=== PATIENT | male | born 2005 | race Caucasian/White ===

== ENCOUNTER 2023-12-29 14:20 | Inpatient (IN) ==
[2023-12-29 15:11] LABS: Appearance Urine Clear (Clear); Bilirubin Urine Negative (Negative); Blood Urine Negative (Negative); Color Urine Yellow; Glucose Urine UA Negative (Negative); Ketones Urine Negative (Negative); Leukocyte Esterase Urine Negative (Negative); Nitrite Urine Negative (Negative); Protein Urine Negative (Negative); Specific Gravity Urine 1.008 (1.000-1.030); Urobilinogen Urine Negative (Negative)
[2023-12-29 15:25] LABS: Hematocrit (blood only) 46.6 % (42.0-52.0); Hemoglobin 16.3 g/dl (14.0-18.0); Mean Corpuscular Volume 86.5 fL (80.0-100.0); Red Blood Count 5.39 M/uL (4.70-6.10); White Blood Count 5.12 K/ul (4.8-10.8)
[2023-12-29 15:26] LABS: Basophils # (auto) 0.03 K/uL (0.00-0.20); Basophils % (auto) 0.6 %; Eosinophils # (auto) 0.04 K/uL (0.00-0.50); Eosinophils % (auto) 0.8 %; Immature Granulocytes # (auto) 0.01 K/uL (0.01-0.20); Immature Granulocytes % (auto) 0.2 %; Lymphocytes # (auto) 1.62 K/uL (1.20-3.40); Lymphocytes % (auto) 31.6 %; Mean Corpuscular Hemoglobin 30.2 pg (25.0-34.0); Mean Platelet Volume 10.8 fL (9.4-12.4); Monocytes # (auto) 0.36 K/uL (0.11-0.59); Neutrophils # (auto) 3.06 K/uL (1.40-6.50); Neutrophils % (auto) 59.8 %; Platelet Count 236 K/uL (130-400); RDW Coefficient of Variation 11.7 % (11.5-14.5); RDW Standard Deviation 36.9 fL (36.4-46.3)
[2023-12-29 15:37] LABS: Acetaminophen < 3 ug/ml (10-30); Salicylate < 3.0 mg/dl (3.0-30)
[2023-12-29 15:40] LABS: Albumin Globulin Ratio 1.9 (0.9-2); Albumin Level 5.3 gm/dl (3.4-5.0); BUN Creatinine Ratio 15.1 (10-20); Bilirubin,Total 1.2 mg/dl (0.2-1.0); Calcium 10.3 mg/dl (8.6-10.3); Creatinine Clr Calc Pharmacy 105.9 ml/min; Globulin 2.8 gm/dl (2.5-4.0); Potassium 3.6 mmol/L (3.5-5.1); Total Protein 8.1 gm/dl (6.0-8.3)
[2023-12-29 15:55] LABS: Thyroid Stimulating Hormone 1.099 uIu/ml (0.300-4.500)
[2023-12-29 15:57] LABS: Amphetamines+Metham, Urine Neg (Neg); Barbiturates, Urine Neg (Neg); Benzodiazepine, Urine Neg (Neg); Cocaine, Urine Neg (Neg); Fentanyl, Urine Neg (Neg); MDMA (Ecstacy), Urine Neg (Neg); Marijuana, Urine Neg (Neg); Methadone, Urine Neg (Neg); Opiate, Urine Neg (Neg); Phencyclidine, Urine Neg (Neg)
[2023-12-29] MEDS: ONDANSETRON INJ 2 MG/ML 2 ML VIAL IV STA (16:14)
--- NOTE | 2023-12-29 17:07 | Electrocardiogram Report ---
Test Reason : Blood Pressure : */* mmHG Vent. Rate : 79 BPM Atrial Rate : 79 BPM P-R Int : 128 ms QRS Dur : 82 ms QT Int : 356 ms P-R-T Axes : 45 69 69 degrees QTcB Int : 408 ms Poor data quality, interpretation may be adversely affected Normal sinus rhythm Normal ECG No previous ECGs available Confirmed by Carlton Ramirez ([id number]) on 12/29/2023 5:06:46 PM Referred By: Confirmed By: Carlton Ramirez
--- NOTE | 2023-12-29 19:56 | Emergency Department Note ---
History of Present Illness General Chief complaint: Overdose (Intentional) Stated complaint: INTENTIONAL OVERDOSE Time Seen by Provider: 12/29/23 14:53 History of Present Illness Provider complaint: Overdose 18-year-old male presents emergency department for suicide attempt by overdose. Patient reports he took 29 tablets of his 50 mg Zoloft at 1330. He denies taking any other pills. He denies any drugs or alcohol. He denies any cutting. He denies any access to any firearms. Home Medications Medication Instructions Recorded Confirmed Type sertraline 50 mg tablet 50 mg PO DAILY #30 tabs 12/26/23 12/26/23 Rx Allergies Allergy/AdvReac Type Severity Reaction Status Date / Time No Known Allergies Allergy Verified 12/26/23 10:20 Past Med/Surg History Problem List (Updated 12/29/23 @ 23:27 by Julio Cesar Ordoñez MD) Depression with suicidal ideation (Acute) Intentional overdose of selective serotonin reuptake inhibitor (SSRI) (Acute) Medical History Generalized anxiety disorder History of suicidal ideation Depression Surgical History Hx of wisdom tooth extraction Family History Grandfather (Maternal) Hypertension Other Breast cancer Denies family history of Ovarian cancer Prostate cancer Lung cancer Colorectal cancer Social History Smoking Status: Current some day smoker Second Hand Exposure: No; Hx Alcohol Use: Yes Hx Substance Use: No Preferred Language: [place] Visual Impairment: No Limitations Hearing Ability: Normal Current Living Situation Comment: roomate current occupational status: student How many Children do You have: 0 Feels Safe at Home: Yes Childhood Exposure to Second-Hand Smoke: No caffeine: Yes Dental Care, Regularly: Yes Physical Activity Frequency: 3-4 Times per Week Gender Identity: Male Physical Exam Vital Signs Vital Signs - 24 hr 12/29/23 14:32 12/29/23 14:42 12/29/23 14:42 Temperature 37.2 C Temperature Source Oral Pulse Rate 93 H Pulse Rate [Apical] 94 H Pulse Rhythm [Apical] Pulse Strength [Apical] Respiratory Rate 18 23 Respiratory Effort / Characteristics Non-Labored Spontaneous Respiratory Depth Normal Respiratory Pattern Regular Blood Pressure 143/92 H Blood Pressure [Right Arm] 145/89 H Blood Pressure Mean 109 Blood Pressure Mean [Right Arm] 107 Blood Pressure Position [Right Arm] Pulse Oximetry 94 100 100 Oxygen Delivery Method Room Air Room Air Room Air Sepsis Recent Fever Within 48 Hours No Sepsis New/Unexplained Change in Mental Status N/A Sepsis Action Taken by Nursing No Action Required 12/29/23 17:40 12/29/23 19:00 12/29/23 20:32 Temperature Temperature Source Pulse Rate Pulse Rate [Apical] 132 H 119 H 120 H Pulse Rhythm [Apical] Regular Regular Pulse Strength [Apical] Normal Normal Respiratory Rate 20 20 19 Respiratory Effort / Characteristics Non-Labored Non-Labored Respiratory Depth Normal Normal Respiratory Pattern Regular Blood Pressure Blood Pressure [Right Arm] 166/98 H 164/92 H 151/97 H Blood Pressure Mean Blood Pressure Mean [Right Arm] 120 116 115 Blood Pressure Position [Right Arm] Sitting Sitting Pulse Oximetry 99 97 98 Oxygen Delivery Method Room Air Room Air Room Air Sepsis Recent Fever Within 48 Hours Sepsis New/Unexplained Change in Mental Status Sepsis Action Taken by Nursing Physical Exam GENERAL: oriented to person, place, and time. appears well-developed and well- nourished. HENT: Exam performed. - Head: Normocephalic and atraumatic. EYES: Conjunctivae and EOM are normal. Right eye exhibits no discharge. Left eye exhibits no discharge. No scleral icterus. NECK: Normal range of motion. Neck supple. No JVD present. CV: Normal rate, regular rhythm, normal heart sounds and intact distal pulses. There is no peripheral edema. Palpable radial pulses bue. PULM/CHEST: Effort normal and breath sounds normal. No respiratory distress. No stridor. no wheezes. no rales. ABD: The abdomen is soft. There is no tenderness. NEURO: Motor and sensation grossly intact. SKIN: Skin is warm and dry. He is not diaphoretic. PSYCH: Suicidal ideation. Bizarre affect. Course Course 1453: The patient was evaluated in room A7. A complete history and physical exam was performed Cardiac monitoring: An order was placed for continuous cardiac monitoring. The monitor shows a rate of 80 with sinus rhythm interpreted by me 1543: Vital signs stable. Spoke with Poison Control Center. They recommend observation for 6 hours since time of ingestion. They stated that the patient became agitated sharp, serotonergic to give Ativan as needed. 1956: Patient alert and oriented x 3. Patient no acute distress tolerating p.o. walking around the room. Patient medically cleared. Awaiting psychiatric evaluation and placement. Patient placed in observation at this time. 2322: Awaiting psychiatric evaluation. Case signed out to Dr. Barlow Administered Medications Discontinued Medications Lorazepam (Lorazepam 1 Mg Tab) 1 mg SL NOW STA Stop: 12/29/23 22:28 Last Admin: 12/29/23 22:45 Dose: 1 mg Documented By: [facility] Ondansetron HCl (Ondansetron Inj 2 Mg/Ml 2 Ml Vial) 4 mg IV NOW STA Stop: 12/29/23 15:47 Last Admin: 12/29/23 16:14 Dose: 4 mg Documented By: STONEY Medical Decision Making Laboratory Data Attestation: I reviewed the patient's lab results. 12/29/23 14:55 12/29/23 14:55 Lab Results 12/29/23 Range/Units 14:55 WBC 5.12 (4.8-10.8) K/ul RBC 5.39 (4.70-6.10) M/uL Hgb 16.3 (14.0-18.0) g/dl Hct 46.6 (42.0-52.0) % MCV 86.5 (80.0-100.0) fL MCH 30.2 (25.0-34.0) pg MCHC 35.0 (32.0-36.0) g/dL RDW Std Deviation 36.9 (36.4-46.3) fL RDW Coeff of Kevin 11.7 (11.5-14.5) % Plt Count 236 (130-400) K/uL MPV 10.8 (9.4-12.4) fL Immature Gran % (Auto) 0.2 % Neut % (Auto) 59.8 % Lymph % (Auto) 31.6 % Ross % (Auto) 7.0 % Eos % (Auto) 0.8 % Baso % (Auto) 0.6 % Neut # (Auto) 3.06 (1.40-6.50) K/uL Lymph # (Auto) 1.62 (1.20-3.40) K/uL Ross # (Auto) 0.36 (0.11-0.59) K/uL Eos # (Auto) 0.04 (0.00-0.50) K/uL Baso # (Auto) 0.03 (0.00-0.20) K/uL Immature Gran # (Auto) 0.01 (0.01-0.20) K/uL Sodium 141 (136-145) mmol/L Potassium 3.6 (3.5-5.1) mmol/L Chloride 104 (98-107) mmol/L Carbon Dioxide 28 (21-32) mmol/L Anion Gap 9 (3-11) BUN 14 (6-23) mg/dl Creatinine 0.93 (0.6-1.4) mg/dl Est Cr Clr Drug Dosing 105.9 ml/min eGFR 120.55 BUN/Creatinine Ratio 15.1 (10-20) Glucose 83 (70-99(Fasting)) mg/dl Calcium 10.3 (8.6-10.3) mg/dl Total Bilirubin 1.2 H (0.2-1.0) mg/dl AST 17 (13-39) U/L ALT 12 (7-52) U/L Alkaline Phosphatase 65 (34-104) U/L Total Protein 8.1 (6.0-8.3) gm/dl Albumin 5.3 H (3.4-5.0) gm/dl Globulin 2.8 (2.5-4.0) gm/dl Albumin/Globulin Ratio 1.9 (0.9-2) TSH 1.099 (0.300-4.500) uIu/ml Urine Color Yellow Urine Appearance Clear (Clear) Urine pH 7.0 (4.5-7.5) Ur Specific [place] 1.008 (1.000-1.030) Urine Protein Negative (Negative) Urine Glucose (UA) Negative (Negative) Urine Ketones Negative (Negative) Urine Blood Negative (Negative) Urine Nitrite Negative (Negative) Urine Bilirubin Negative (Negative) Urine Urobilinogen Negative (Negative) Ur Leukocyte Esterase Negative (Negative) Salicylates < 3.0 L (3.0-30) mg/dl Urine Opiates Screen Neg (Neg) Ur Methadone, Qual Neg (Neg) Urine Fentanyl Screen Neg (Neg) Acetaminophen < 3 L (10-30) ug/ml Urine Barbiturates Neg (Neg) Ur Phencyclidine (PCP) Neg (Neg) U Amphetamin/Meth Scrn Neg (Neg) MDMA (Ecstasy) Screen Neg (Neg) U Benzodiazepines Scrn Neg (Neg) Ur Cocaine Metabolite Neg (Neg) U Marijuana (THC) Screen Neg (Neg) Ethyl Alcohol mg/dL < 10.0 (<10.0) mg/dl SARS-CoV-2, RNA, NAAT NEGATIVE (NEGATIVE) ECG Data Attestation: I personally reviewed and interpreted this ECG as follows: Additional Comments: EKG #1 at 1449: Sinus rhythm with rate of 79. MT 128 QRS [address] elevation or ST depression. There is peaked T waves in leads V2, V3, V4, V5 V6. No terminal R wave. EKG #2 at 1536: Sinus rhythm with a rate of 85. MT 130 QRS [address] elevation or ST depression. There are peaked T waves in leads V3 V4. No terminal R wave. [facility] Narrative 1453: The patient was evaluated in room A7. A complete history and physical exam was performed Cardiac monitoring: An order was placed for continuous cardiac monitoring. The monitor shows a rate of 80 with sinus rhythm interpreted by me 1543: Vital signs stable. Spoke with Poison Control Center. They recommend observation for 6 hours since time of ingestion. They stated that the patient became agitated sharp, serotonergic to give Ativan as needed. 7: Patient alert and oriented x 3. Patient no acute distress tolerating p.o. walking around the room. Patient medically cleared. Awaiting psychiatric evaluation and placement. Patient placed in observation at this time. 2323: Awaiting psychiatric evaluation. Case signed out to Dr. Barlow Observation note Indication: Psych eval/placement Patient, with depression, anxiety was first seen at 1453 hrs and the observation time began at 1957 hrs and was necessary in order to have psych evaluation completed . Impression & Plan Intentional overdose of selective serotonin reuptake inhibitor (SSRI), Depression with suicidal ideation Discharge Plan Visit Data Chief Complaint: Overdose (Intentional) Stated Complaint: INTENTIONAL OVERDOSE ED Provider: Julio Cesar Ordoñez Discharge Problem: Intentional overdose of selective serotonin reuptake inhibitor (SSRI), Depression with suicidal ideation Patient Disposition: Still a Patient Forms Stand Alone Forms: [facility], Suicide Prevention Resources Prescriptions Prescriptions: No Action sertraline 50 mg tablet 50 mg PO DAILY Qty: 30 2RF Rx Instructions: take 1/2 tablet once a day for 2 weeks, then ok to increase to full tablet. Referrals Referrals: Jose Elias Mosher CRNP [Primary Care Provider] - Discharge Problem: Intentional overdose of selective serotonin reuptake inhibitor (SSRI) Qualifiers: Encounter type: initial encounter Qualified Code(s): T43.222A - Poisoning by selective serotonin reuptake inhibitors, intentional self-harm, initial encounter
[2023-12-29] MEDS: LORazepam 1 MG TAB SL STA (22:45)
[2023-12-30] MEDS: LORazepam 1 MG TAB SL STA (00:21)
--- NOTE | 2023-12-30 00:25 | Emergency Department Note ---
ED Visit Note Patient is a 18-year-old male who was signed out to me following intentional overdose. He was medically cleared by Dr. Ordoñez in [facility]. Bed search ensued. Patient was accepted to [facility]. and will be transferred there on a 201. Patient rested my care for an hour without difficulty. .
[2023-12-30] MEDS ORDERED: ACETAMINOPHEN 325 MG TAB PO PRN (00:29)
[2023-12-30] MEDS ORDERED: ALUMINUM/MAGNESIUM SUSP 30 ML UDC PO PRN (00:29)
[2023-12-30] MEDS ORDERED: MAGNESIUM HYDROXIDE SUSP 30 ML UDC PO PRN (00:29)
[2023-12-30] MEDS ORDERED: BISMUTH SUBSALICYLATE 262 MG CHEW PO PRN (00:29)
[2023-12-30] MEDS ORDERED: hydrOXYzine HCl 25 MG TAB PO PRN (00:29)
[2023-12-30] MEDS ORDERED: SODIUM CHLORIDE 0.65% NA SOLN 45 ML (OCEAN) PRN (00:29)
[2023-12-30] MEDS: hydrOXYzine HCl 25 MG TAB PO PRN (01:29)
[2023-12-30] MEDS: LORazepam 1 MG TAB PO STA ×3 (03:59→12:33)
[2023-12-30] MEDS: LORazepam 1 MG TAB PO PRN (05:13)
--- NOTE | 2023-12-30 09:46 | History & Physical Report ---
Date of Service December 30, 2023 Assessment & Plan Admission and Anticipated Discharge Date Admission Date: December 30, 2023 History of Present Illness Primary Care Provider: VIRAL Fair Allergies Allergy/AdvReac Type Severity Reaction Status Date / Time No Known Allergies Allergy Verified 12/26/23 10:20 Home Medications Medication Instructions Recorded Confirmed Type sertraline 50 mg tablet 50 mg PO DAILY #30 tabs 12/26/23 12/30/23 Rx Past Med/Surg History Problem List (Updated 12/29/23 @ 23:27 by Julio Cesar Ordoñez MD) Depression with suicidal ideation (Acute) Intentional overdose of selective serotonin reuptake inhibitor (SSRI) (Acute) Medical History Generalized anxiety disorder History of suicidal ideation Depression Surgical History Hx of wisdom tooth extraction Family History Grandfather (Maternal) Hypertension Other Breast cancer Denies family history of Ovarian cancer Prostate cancer Lung cancer Colorectal cancer Social History Smoking Status: Never smoker Second Hand Exposure: No; Hx Alcohol Use: Yes Hx Substance Use: No Preferred Language: Syriac Communication Ability: Effective Visual Impairment: No Limitations Hearing Ability: Normal Stencil Machine Operator Required: No Beliefs That Will Affect Care: None Current Living Situation Comment: roomate current occupational status: student How many Children do You have: 0 Feels Safe at Home: Yes Childhood Exposure to Second-Hand Smoke: No caffeine: Yes Dental Care, Regularly: Yes Physical Activity Frequency: 3-4 Times per Week Gender Identity: Male Assistive Devices: None Results & Data Results & Data Vital Signs (Past 12 Hours) Vital Signs Temp Pulse Pulse Pulse Pulse Resp BP 12/30/23 09:38 36.9 C 87 20 12/30/23 06:54 118 H 12/30/23 06:52 36.9 C 112 H 18 12/30/23 05:12 123 H 12/30/23 05:11 37 C 37 L 108 H 16 12/30/23 03:09 37.2 C 98 H 16 12/30/23 01:34 36.6 C 110 H 18 12/30/23 00:34 124 H 20 148/68 H BP BP Pulse Ox O2 Del Method 12/30/23 09:38 141/87 H 99 Room Air 12/30/23 06:54 124/89 12/30/23 06:52 136/92 12/30/23 05:12 157/84 H 12/30/23 05:11 139/74 12/30/23 03:09 133/72 95 Room Air 12/30/23 01:34 138/88 99 Room Air 12/30/23 00:34 97 Room Air Code Status & VTE Plan VTE Prophylaxis Plan VTE Prophylaxis will be ordered: No Reason for no VTE drug order: Treatment not indicated PG Care Time/CCT Total # of Minutes Spent Total Time Spent with Patient: Total time spent is greater than 50% in coordination of care (as documented) at patient's floor/unit and/or counseling patient: Coding
--- NOTE | 2023-12-30 09:50 | Hospitalist Consultation ---
Date of Consultation December 30, 2023 Assessment & Plan (1) Depression with suicidal ideation: (2) Intentional overdose of selective serotonin reuptake inhibitor (SSRI): Plan Based on patient's symptoms, will plan to transfer patient over to medical service: Disposition: Admit to [facility] telemetry Full code Safe tray, regular diet VTE PPx: History of Present Illness Reason for Consultation: Transfer service to medical management Requesting Physician: Sunshine Hernandez MD Attending Physician: Sunshine Hernandez MD History of Present Illness Tenzin is a 18-year-old male with PMH of depression and suicidal ideations. He initially presented to the ED on 12/28 after an intentional overdose. He ingested a bottle of sertraline (29 tablets; approximately 1450 mg) around 1330 on 12/28, which was intentional. Patient does have a history of suicidal ideat ions and previous attempts. He was initially admitted to the behavioral health/psychiatry on arrival, however shortly after getting on the [facility]HU he became increasingly agitated/delirious. Behavioral health reached out around 9:30 AM on 12/29 after patient began to develop confusion, hallucinations, and hyperreflexia due to concern for serotonin syndrome. Patient is hypertensive at 141/87 at time of consultation; vitals otherwise stable. ROS: Patient endorses Patient denies Allergies Allergy/AdvReac Type Severity Reaction Status Date / Time No Known Allergies Allergy Verified 12/26/23 10:20 Patient History Medical History Generalized anxiety disorder History of suicidal ideation Depression Surgical History Hx of wisdom tooth extraction Family History Grandfather (Maternal) Hypertension Other Breast cancer Denies family history of Ovarian cancer Prostate cancer Lung cancer Colorectal cancer Social History Smoking Status: Never smoker Second Hand Exposure: No; Hx Alcohol Use: Yes Hx Substance Use: No Preferred Language: Yakut Communication Ability: Effective Visual Impairment: No Limitations Hearing Ability: Normal Bioinformatics Support Specialist Required: No Beliefs That Will Affect Care: None Current Living Situation Comment: roomate current occupational status: student How many Children do You have: 0 Feels Safe at Home: Yes Childhood Exposure to Second-Hand Smoke: No caffeine: Yes Dental Care, Regularly: Yes Physical Activity Frequency: 3-4 Times per Week Gender Identity: Male Assistive Devices: None Review of Systems Review of Systems: See HPI above Physical Exam Physical Exam: General: no acute distress; non-toxic appearing; well-nourished; cooperative HEENT: normocephalic, atraumatic; no scleral icterus; PERRLA w/ EOMs intact; vision and hearing grossly intact Neck: supple; no lymphadenopathy; trachea midline Skin: warm, dry without signs of tenting; no cyanosis; no rashes, bruising, lesions, or erythema noted CV: chest wall NTP; RRR; S1/S2 normal; no murmurs/rubs/gallops; pulses intact and symmetric at radial, DP, and PT Lungs: no acute respiratory distress; symmetrical chest wall expansion; clear breath sounds across all lung cornelius w/o adventitious sounds; no wheezing ABD: Soft, NTP; BS present; no rebound/guarding; no distention MSK: no tics or fasciculations; no edema noted in the LEs b/l, nonerythematous Neuro: A&Ox3; normal mood and affect; fluent speech; no focal deficits; sensation grossly intact in the LEs b/l Results & Data Results & Data Vital Signs (Past 12 Hours) Vital Signs Temp Pulse Pulse Pulse Pulse Resp BP 12/30/23 09:38 36.9 C 87 20 12/30/23 06:54 118 H 12/30/23 06:52 36.9 C 112 H 18 12/30/23 05:12 123 H 12/30/23 05:11 37 C 37 L 108 H 16 12/30/23 03:09 37.2 C 98 H 16 12/30/23 01:34 36.6 C 110 H 18 12/30/23 00:34 124 H 20 148/68 H BP BP Pulse Ox O2 Del Method 12/30/23 09:38 141/87 H 99 Room Air 12/30/23 06:54 124/89 12/30/23 06:52 136/92 12/30/23 05:12 157/84 H 12/30/23 05:11 139/74 12/30/23 03:09 133/72 95 Room Air 12/30/23 01:34 138/88 99 Room Air 12/30/23 00:34 97 Room Air Laboratory Results Abnormal lab results 12/29/23 Range/Units 14:55 Total Bilirubin 1.2 H (0.2-1.0) mg/dl Albumin 5.3 H (3.4-5.0) gm/dl Salicylates < 3.0 L (3.0-30) mg/dl Acetaminophen < 3 L (10-30) ug/ml PG Care Time/CCT Total # of Minutes Spent Total Time Spent with Patient: Total time spent is greater than 50% in coordination of care (as documented) at patient's floor/unit and/or counseling patient: [place] [address] IN/OBS CONSULT LVL 5,80M Patient Type New Medical Decision Making High Complexity Diagnoses Depression with suicidal ideation F32.A; R45.851 Intentional overdose of selective serotonin reuptake inhibitor (SSRI) T43.222A Encounter type: initial encounter (2) Intentional overdose of selective serotonin reuptake inhibitor (SSRI) Encounter type: initial encounter Qualified Code(s): T43.222A - Poisoning by selective serotonin reuptake inhibitors, intentional self-harm, initial encounter
--- NOTE | 2023-12-30 10:13 | History & Physical ---
Date of Service December 30, 2023 Impression / Recommendations Impression 18 yr old M, initially presenting to ED for intentional OD on 1500mg of sertraline. Observed for 6+ hours in ED uneventfully, since admission to has been hallucinating and with VS instability. Noted to be hyper-reflexive on physical exam. Given this being an acute change in his presentation following ingestion of about 1500mg of sertraline, have concerns of possible serotonin syndrome (can take up to 30 hours post ingestion to present). (1) Delirium due to another medical condition, acute, hyperactive: (2) Intentional overdose of selective serotonin reuptake inhibitor (SSRI): Encounter type: initial encounter Qualified Code(s): T43.222A - Poisoning by selective serotonin reuptake inhibitors, intentional self-harm, initial encounter (3) Depression with suicidal ideation: Plan Discussed case with hospitalist and patient will be transferred to telemetry unit for medical monitoring to ensure safety. Defer psychotropics at this time until patient is medically stabilized. The patient was admitted to the [facility] ([facility] unit) on q15 min checks (behavioral with suicide precautions) for safety. The patient will participate in group, recreational, and milieu therapies and will be offered additional individual and family sessions as clinically appropriate. A physical exam was performed in the ER prior to admission to the unit by Dr. Julio Cesar Ordoñez. I accept that physical as correct/medical clearance for the inpatient physical exam. Overall, I spent a total of 80 minutes with this case, including review of chart, review of records, direct evaluation of the patient, coordination with nursing,coordination of care with hospitalist service, risk assessment, and documentation. Suicide Risk Level Suicide Risk Level: High-Moderate (q15 min suicide checks) Risk Factors Assessment Male: Yes : Yes Do You Have Access To A Gun?: No Health Problems: No Mental Health Diagnoses: Yes Substance Use Disorders: No Previous Attempt: Yes Family History of Suicide: No Previous Psychiatric Hospitalization: No Hopelessness: Yes Protective Factors Assessment Responsible for Young Children: No Employed: No Psychiatric History Identifying Data MASON CRENSHAW is a 18-year-old M who was admitted on 12/30/23 00:29 on a 201 voluntary commitment for intentional overdose on 1500mg of sertraline. Chief Complaint "Hey there!". History of Present Illness 18 yr old M, initially presenting to ED for intentional OD on 1500mg of sertraline. As per poison control recommendation, he was observed in ER for 6 hours uneventfully and transferred to overnight. Patient did not sleep overnight, was wandering the unit and behaving oddly. Has been complaining of VH and feeling confused - has no prior psychotic history. VS unstable through the night, tachycardic & hypertensive with brief improvements in VS following Ativan 1mg (received 4mg total). Is oriented however is slurring his speech and unable to maintain steady gaze (though this may be due to the Ativan at least in part). Is unable to provide meaningful history as he forgets words and gets confused quickly. Of note, he did report to psychiatric liaison overnight that he had 1 prior SA via hanging possibly but no further details known at this time. Can be seen laughing inappropriately at times, has difficulty following interview questions. Noted to be hyper-reflexive on exam. Given this being an acute change in his presentation following ingestion of about 1500mg of sertraline, have concerns of possible serotonin syndrome (can take up to 30 hours post ingestion to present) discussed his case with hospitalist and patient will be transferred to telemetry unit for medical monitoring to ensure safety. Past Psychiatric History Previous Psych History: Unclear - was being prescribed sertraline 50mg by PCP, taking prozac for a month prior to this as per psychiatrc liaison Current Psychiatric Diagnosis: Suicide Attempt Outpatient Services: none - medication rx from pcp Previous Psych Admissions: denies Do You Have Access To A Gun?: No History of Previous Suicide Attempt: Yes Past Medication Trials: possible prozac for a month, switched to sertraline day prior to admission Allergies Allergy/AdvReac Type Severity Reaction Status Date / Time No Known Allergies Allergy Verified 12/26/23 10:20 Family History Family History of: Doesn't Know Family Mental Health History Comment: "I haven't really kept up with that." Alcohol History Hx of Alcohol Use Over the Past 12 Months: Yes (Social) AUDIT Total Score: 0 Smoking Use Have You Smoked or Used Tobacco Products in the Last 30 Days: No Smoking Status: Never smoker Substance History Hx of Prescription Med Misuse Over the Past 12 Months: No Hx of Over the Counter Med Misuse Over the Past 12 Months: No Hx of Inhalent Misuse Over the Past 12 Months: No Hx of Organic Substance Use Over the Past 12 Months: No Hx of Illegal Substances/Street Drug Use Over Past 12 Months: No Problems as a Result of Past Substance Use: None Identified Problems as a Result of Past Substance Use Comments: No problems reports he quit Personal History Living Arrangements: Apartment Living Arrangements Comments: college housing Highest Grade Completed: Some College Highest Grade Completed Comment: current tamie in Physics at [employer] Marital Status: Single Beliefs That Will Affect Care: None Patient History Medical History Generalized anxiety disorder History of suicidal ideation Depression Surgical History Hx of wisdom tooth extraction Family History Grandfather (Maternal) Hypertension Other Breast cancer Denies family history of Ovarian cancer Prostate cancer Lung cancer Colorectal cancer Social History Smoking Status: Never smoker Second Hand Exposure: No; Hx Alcohol Use: Yes Hx Substance Use: No Preferred Language: Amharic Communication Ability: Effective Visual Impairment: No Limitations Hearing Ability: Normal Bobbin Stripper Required: No Beliefs That Will Affect Care: None Current Living Situation Comment: roomate current occupational status: student How many Children do You have: 0 Feels Safe at Home: Yes Childhood Exposure to Second-Hand Smoke: No caffeine: Yes Dental Care, Regularly: Yes Physical Activity Frequency: 3-4 Times per Week Gender Identity: Male Assistive Devices: None Physical Exam Mental Examination: Appearance: Well Groomed Eye Contact: Sporadic Contact (has difficulty maintaining gaze) Motor Behavior: Restless, Unsteady and Hyperactive Speech: Slurred and Delayed Mood: Happy Affect: Constricted (with times of sudden laughing inappropriately) Thought Process: Slowed Thinking (suspect due to ativan but unclear) Thought Content: Slowed Thinking Hallucinations: Visual Insight: Poor Judgement: Poor Vital Signs (Past 24 Hours): Last Vital Signs Temp 36.9 C 12/30/23 09:38 Pulse 87 12/30/23 09:38 Resp 20 12/30/23 09:38 BP 141/87 H 12/30/23 09:38 Pulse Ox 99 12/30/23 09:38 O2 Del Method Room Air 12/30/23 09:38 Neurologic: + abnormal deep tendon reflexes (hyper-r eflexive b/l in UE & LE, 3+) Speech / Cognition: + abnormal speech (slurring (though did receive ativan 4mg over course of night)) Results & Data ([facility]) Laboratory Results Laboratory Results - last 24 hr 12/29/23 14:55 WBC 5.12 RBC 5.39 Hgb 16.3 Hct 46.6 MCV 86.5 MCH 30.2 MCHC 35.0 RDW Std Deviation 36.9 RDW Coeff of Kevin 11.7 Plt Count 236 MPV 10.8 Immature Gran % (Auto) 0.2 Neut % (Auto) 59.8 Lymph % (Auto) 31.6 [place] % (Auto) 7.0 Eos % (Auto) 0.8 Baso % (Auto) 0.6 Neut # (Auto) 3.06 Lymph # (Auto) 1.62 [place] # (Auto) 0.36 Eos # (Auto) 0.04 Baso # (Auto) 0.03 Immature Gran # (Auto) 0.01 Sodium 141 Potassium 3.6 Chloride 104 Carbon Dioxide 28 Anion Gap 9 BUN 14 Creatinine 0.93 Est Cr Clr Drug Dosing 105.9 eGFR 120.55 BUN/Creatinine Ratio 15.1 Glucose 83 Calcium 10.3 Total Bilirubin 1.2 H AST 17 ALT 12 Alkaline Phosphatase 65 Total Protein 8.1 Albumin 5.3 H Globulin 2.8 Albumin/Globulin Ratio 1.9 TSH 1.099 Urine Color Yellow Urine Appearance Clear Urine pH 7.0 Ur Specific [place] 1.008 Urine Protein Negative Urine Glucose (UA) Negative Urine Ketones Negative Urine Blood Negative Urine Nitrite Negative Urine Bilirubin Negative Urine Urobilinogen Negative Ur Leukocyte Esterase Negative Salicylates < 3.0 L Urine Opiates Screen Neg Ur Methadone, Qual Neg Urine Fentanyl Screen Neg Acetaminophen < 3 L Urine Barbiturates Neg Ur Phencyclidine (PCP) Neg U Amphetamin/Meth Scrn Neg MDMA (Ecstasy) Screen Neg U Benzodiazepines Scrn Neg Ur Cocaine Metabolite Neg U Marijuana (THC) Screen Neg Ethyl Alcohol mg/dL < 10.0 SARS-CoV-2, RNA, NAAT NEGATIVE Current Inpatient Medications Current Inpatient Medications: Current Inpatient Medications Acetaminophen (Acetaminophen 325 Mg Tab) 650 mg PO Q4H PRN PRN Reason: Headache or Minor Fever Stop: 01/29/24 00:28 Al Hydrox/Mg Hydrox/Simethicone (Aluminum/Magnesium Susp 30 Ml Udc) 30 ml PO Q4H PRN PRN Reason: GI Upset Stop: 01/29/24 00:28 Bismuth Subsalicylate (Bismuth Subsalicylate 262 Mg Chew) 2 tab PO Q30M PRN PRN Reason: Loose Stool/Diarrhea Stop: 01/29/24 00:28 Hydroxyzine HCl (Hydroxyzine Hcl 25 Mg Tab) 50 mg PO HSZ PRN PRN Reason: Insomnia Stop: 01/29/24 00:28 Last Admin: 12/30/23 01:29 Dose: 50 mg Hydroxyzine HCl (Hydroxyzine Hcl 25 Mg Tab) 25 mg PO Q4H PRN PRN Reason: Anxiety Stop: 01/29/24 00:28 Lorazepam (Lorazepam 1 Mg Tab) 1 mg PO Q1H PRN PRN Reason: agitation/anxious distress Stop: 01/29/24 03:42 Last Admin: 12/30/23 05:13 Dose: 1 mg Magnesium Hydroxide (Magnesium Hydroxide Susp 30 Ml Udc) 30 ml PO DAILY PRN PRN Reason: Constipation Stop: 01/29/24 00:28 Sodium Chloride (Sodium Chloride 0.65% Na Soln 45 Ml (Luna)) 1 - 2 sprays NA PRN PRN PRN Reason: Nasal Dryness/Congestion Stop: 01/29/24 00:28
--- NOTE | 2023-12-30 10:22 | Discharge Summary ---
Date of Service December 30, 2023 History of Present Illness 18 yr old M, initially presenting to ED for intentional OD on 1500mg of sertraline. As per poison control recommendation, he was observed in ER for 6 hours uneventfully and transferred to 3S overnight. Patient did not sleep overnight, was wandering the unit and behaving oddly. Has been complaining of VH and feeling confused - has no prior psychotic history. VS unstable through the night, tachycardic & hypertensive with brief improvements in VS following Ativan 1mg (received 4mg total). Is oriented however is slurring his speech and unable to maintain steady gaze (though this may be due to the Ativan at least in part). Is unable to provide meaningful history as he forgets words and gets confused quickly. Of note, he did report to psychiatric liaison overnight that he had 1 prior SA last year via hanging possibly but no further details known at this time. Noted to be hyper-reflexive on exam, presents as altered and confused. Given this being an acute change in his presentation following ingestion of about 1500mg of sertraline, have concerns of possible serotonin syndrome (can take up to 30 hours post ingestion to present) Discussed his case with hospitalist due to the above concerns. Patient was assessed on the unit - reported experiencing chills, GI distress and feverish. It was determined that patient will be transferred to telemetry unit for medical monitoring to ensure safety. Physical Exam Vital Signs (Past 24 Hours) Last Vital Signs Temp 36.9 C 12/30/23 09:38 Pulse 87 12/30/23 09:38 Resp 20 12/30/23 09:38 BP 141/87 H 12/30/23 09:38 Pulse Ox 99 12/30/23 09:38 O2 Del Method Room Air 12/30/23 09:38 Neurologic + abnormal deep tendon reflexes (hyper-reflexive b/l in UE & LE, 3+) Speech / Cognition: + abnormal speech (slurring (though did receive ativan 4mg over course of night)) Principal Diagnosis Intentional overdose on 1500mg of sertraline with suspected serotonin syndrome Psychiatric Data See HPI - patient admitted to unit overnight with worsening symptoms concerning for serotonin syndrome (her-reflexia, unstable VS, chills, GI distress) and being transferring to telemetry for medical monitoring. No medications were started, though he did receive total of 4mg of ativan since first presenting to ED evening of 10/7. Day of Discharge Assessment Please see above in hospital course. Transition of Care Transition Of Care Record: was reviewed with the patient Advance Directives Advance Directives Information Provided: No Advance Directives: No Mental Health Advance Directive: No Advance Directives on File: No Living Will: No Power of Red Cap: No Advance Directives Reason:: Declines as Mental Health Visit. Risk Factors Assessment Male: Yes : Yes Do You Have Access To A Gun?: No Substance Use Disorders: No Previous Psychiatric Hospitalization: No Protective Factors Assessment Employed: No Total Time Total Time Spent: Greater Than 30 Minutes Total Time Includes: Examination of the patient, Discharge Planning, Medication Reconciliation, Communication with other providers and As well as (discussion with nursing, discussion with psychiatric liaison, review of chart) Discharge Data Lab Results 12/29/23 14:55 WBC 5.12 RBC 5.39 Hgb 16.3 Hct 46.6 MCV 86.5 MCH 30.2 MCHC 35.0 RDW Std Deviation 36.9 RDW Coeff of Kevin 11.7 Plt Count 236 MPV 10.8 Immature Gran % (Auto) 0.2 Neut % (Auto) 59.8 Lymph % (Auto) 31.6 [place] % (Auto) 7.0 Eos % (Auto) 0.8 Baso % (Auto) 0.6 Neut # (Auto) 3.06 Lymph # (Auto) 1.62 [place] # (Auto) 0.36 Eos # (Auto) 0.04 Baso # (Auto) 0.03 Immature Gran # (Auto) 0.01 Sodium 141 Potassium 3.6 Chloride 104 Carbon Dioxide 28 Anion Gap 9 BUN 14 Creatinine 0.93 Est Cr Clr Drug Dosing 105.9 eGFR 120.55 BUN/Creatinine Ratio 15.1 Glucose 83 Calcium 10.3 Total Bilirubin 1.2 H AST 17 ALT 12 Alkaline Phosphatase 65 Total Protein 8.1 Albumin 5.3 H Globulin 2.8 Albumin/Globulin Ratio 1.9 TSH 1.099 Urine Color Yellow Urine Appearance Clear Urine pH 7.0 Ur Specific [place] 1.008 Urine Protein Negative Urine Glucose (UA) Negative Urine Ketones Negative Urine Blood Negative Urine Nitrite Negative Urine Bilirubin Negative Urine Urobilinogen Negative Ur Leukocyte Esterase Negative Salicylates < 3.0 L Urine Opiates Screen Neg Ur Methadone, Qual Neg Urine Fentanyl Screen Neg Acetaminophen < 3 L Urine Barbiturates Neg Ur Phencyclidine (PCP) Neg U Amphetamin/Meth Scrn Neg MDMA (Ecstasy) Screen Neg U Benzodiazepines Scrn Neg Ur Cocaine Metabolite Neg U Marijuana (THC) Screen Neg Ethyl Alcohol mg/dL < 10.0 SARS-CoV-2, RNA, NAAT NEGATIVE Hospital Course (1) Delirium due to another medical condition, acute, hyperactive: (2) Intentional overdose of selective serotonin reuptake inhibitor (SSRI): (3) Depression with suicidal ideation: Plan Discussed case with hospitalist and patient will be transferred to telemetry unit for medical monitoring to ensure safety. Defer psychotropics at this time until patient is medically stabilized. [facility] on q15 min checks (behavioral with suicide precautions) for safety. The patient will participate in group, recreational, and milieu therapies and will be offered additional individual and family sessions as clinically appropriate. A physical exam was performed in the ER prior to admission to the unit by Dr. Julio Cesar Ordoñez. I accept that physical as correct/medical clearance for the inpatient physical exam. Overall, I spent a total of 80 minutes with this case, including review of chart, review of records, direct evaluation of the patient, coordination with nursing,coordination of care with hospitalist service, risk assessment, and documentation. Mental Health & Subst Abuse Tx Therapist Name of Therapist: none Shoe Stainer Name of Shoe Stainer: none Post Discharge Appointments Primary Care Physician Name Of Family Doctor/PCP: uncertain Date of Future Appointment with PCP: no Discharge Plan Discharge Items Patient Disposition: Home - Self-Care Reason For Visit: SUICIDE ATTEMPT Discharge Diagnosis: Unspecified depressive d/o Delirium in the context of intentional overdose on 1400-1500mg of sertraline Health Concerns: Suspected serotonin syndrome Activity: As commented below Activity Comment: Admission to telemetry Non-emergency contact: Hospitalist and Psychiatrist Call non-emergency contact if: you have any medication questions and your symptoms worsen Follow-up/Referrals: Jose Elias Mosher CRNP [Primary Care Provider] - Diet: Regular Addtl Attending Provider Instructions: SPECIAL CARE INSTRUCTIONS: 1. Follow through with your scheduled aftercare appointments. If unable to keep an appointment, please call to reschedule. 2. Take your medication only as prescribed. Medication should not be changed or stopped without the approval of your doctor. In the event of worsening symptoms or concerns about side effects, contact your doctor immediately. 3. Utilize new healthy coping skills, anger management skills, and stress management skills learned during your hospitalization. Journal feelings and process them with a support person. Identify stressors or situations that may result in relapse, deterioration or inappropriate behaviors and develop a plan to deal with those issues. 4. If your coping skills are ineffective and you are in crisis, contact your outpatient providers for direction. If unable to reach your providers, please call the [facility] CRISIS LINE AT , go to the [facility] walk-in center at [address], [address], [place], or go to the closest Emergency Room. 5. Avoid alcohol and un-prescribed drugs. 6. You have been provided with the Mental Health Advance Directives Pamphlet for your review. 7. Your condition is stable for discharge to outpatient level of care, but recovery is an ongoing process. Ifthoughts to harm yourself or others return, follow the safety plan developed during your stay. Planning for a safe return home includes securing weapons. Our treatment team recommends weaponsbe removed from the home until your outpatient provider reassesses your progress. In rare cases where the items themselvescannot be removed, guns and ammunitionshould be secured separatelyand keys stored by a reliable personoutside of the home. If you were admitted on an involuntary commitment, the police or other legal authorities may be involved in this process. AFTERCARE APPOINTMENTS: * Please call your insurance company prior to your scheduled appointment to confirm your aftercare providers are covered. Take your insurance information to your appointments. WHO TO CALL AND WHEN: Medical Emergencies: For questions or emergencies related to your hospital stay, please contact the Inpatient Behavioral Health Unit at [phone]. A pre billing clinician is on-call 14/10 for the Behavioral Health Unit for emergencies At any time you feel your situation is an emergency, you may also call 911 immediately. Pending Studies at Discharge: No Stand-Alone Forms: [facility], Smoking Cessation Medications and DC Order Prescriptions: Discontinued sertraline 50 mg tablet 50 mg PO DAILY Qty: 30 2RF Rx Instructions: take 1/2 tablet once a day for 2 weeks, then ok to increase to full tablet. Discharge Orders: Discharge Order (Routine); Ordered 12/30/23 Ordered By: Sunshine Hernandez Admission Data Admit Date/Time: 12/30/23 00:29 Attending Provider: Sunshine Hernandez Admit Provider: Sunshine Hernandez Primary Care Provider: Jose Elias Mosher Other Interventions: Discharge Summary Assessment (RN) Last Done: 12/30/23 10:28 Coding Level of Care Code 91019 D/C day mgmt > 30 min Diagnoses Delirium due to another medical condition, acute, hyperactive F05 Intentional overdose of selective serotonin reuptake inhibitor (SSRI) T43.222A Encounter type: initial encounter Depression with suicidal ideation F32.A; R45.851
== END 2023-12-30 14:45 | disposition home or self-care (01) | DRG 918 ==
LOC: ED 14:20 → 3S 12-30 00:29

== ENCOUNTER 2023-12-30 10:41 | Inpatient (IN) ==
--- NOTE | 2023-12-30 10:44 | History & Physical Report ---
Date of Service December 30, 2023 Assessment & Plan (1) Intentional overdose of selective serotonin reuptake inhibitor (SSRI): Plan: Intentional overdose; patient reports that he took 29 tablets of 50 mg Zoloft (1450 mg) around 1330 on 12/28 1 prior suicide attempt; hanging in spring 2023 Patient denies any co-ingestions UDS negative on arrival Patient was initially admitted to the psychiatry/BHU, but developed restlessness/hyperreflexia/tachycardia overnight, and also reported visual hallucinations Concern for serotonin syndrome Will plan to transfer patient over to medical service on the morning of 12/29 One-to-one observation; safe tray Continuous telemetry monitoring Repeat EKG ordered in setting of new onset tachycardia Reach out to [place] poison control to [facility] case They recommended continued benzodiazepines that can be given up to 1 to 2 mg every 20 to 30 minutes as needed until clinical effect Recommended fluid for tachycardia Did not recommend cyproheptadine as this is rarely used nowadays, but if patient is refractory would follow-up with toxicology Ativan 1 mg IV q30min as needed for restlessness/agitation IVF bolus with LR 1000mL for tachycardia IV antiemetics with Zofran as needed; QTc 408 on arrival, recheck pending Will order repeat labs A.m. CBC, BMP, mag (2) Visual hallucinations: Plan: Developed overnight on the evening of 12/28 Patient reports this is new for him One-to-one observation (as above) (3) Depression with suicidal ideation: Plan: Patient denies SI, thoughts of self-harm, or thoughts of harming others on the morning of 12/29 Plan Disposition: Transfer to medical service; admit to [facility] telemetry Full code Safe tray, regular diet One-to-one observation VTE PPx: Low risk, encourage ambulation History of Present Illness Chief Complaint: Suicide attempt, visual hallucinations overnight Primary Care Provider: VIRAL Fair Tenzin is a 18-year-old male with PMH of depression and suicidal ideations. He initially presented to the ED on 12/28 after an intentional overdose. He ingested a bottle of sertraline (29 tablets; approximately 1450 mg) around 1330 on 12/28, which was intentional. Patient does have a history of suicidal ideations and previous attempt. He was initially admitted to the behavioral health/psychiatry on arrival, however shortly after getting on the BHU he became increasingly agitated/delirious. Behavioral health reached out around 9:30 AM on 12/29 after patient began to develop confusion, tachycardia, hallucinations, and hyperreflexia; concern for serotonin syndrome. U course: Ativan 1 mg p.o. x 4 At time of consult, patient reports he does feel tremulous and anxious. He does confirm that he ingested around 29 pills of Zoloft. He denies any co- ingestions. He reports he smoked 1 cigar in the living room prior to taking the Zoloft. No recent alcohol use; last drink was last on 12/24, and reports he only had a shot at dinner. He denies any recreational drug use; reports he quit smoking marijuana. Patient denies history of seizures. While he had no documented fevers overnight, he did report that he felt feverish and developed visual hallucinations overnight. He reports he was seeing "geometry" play out on the mendoza like a "circus". He is unsure if he had any auditory hallucinations, or if he was just dreaming at certain points last night. Patient denies having any suicidal ideations, thoughts of self-harm, or thoughts of harming others at time of admission. He does have a prior suicide attempt; attempted to hang himself in the spring 2023. 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 Patient is hypertensive at 141/87 at time of consultation; vitals otherwise stable. ROS: Patient endorses fever, chills, night-sweats, dizziness, diplopia, visual hallucinations, chest pressure, cough, dry heaves, or diarrhea. Patient denies headache, chest pain, pleuritic CP, SOB, abdominal pain, vomiting, or numbness/tingling in the arms or legs. Allergies Allergy/AdvReac Type Severity Reaction Status Date / Time No Known Allergies Allergy Verified 12/26/23 10:20 Home Medications Medication Instructions Recorded Confirmed Type bupropion HCl 150 mg 24 hr tablet, 150 mg PO QAM 15 days #15 tabs 01/05/24 Rx extended release clonidine HCl 0.1 mg tablet 0.1 mg PO HS 15 days #15 tabs 01/05/24 Rx Past Med/Surg History Problem List (Updated 01/04/24 @ 16:51 by Vanessa Warner MD) ADHD Major depressive disorder, recurrent severe without psychotic features Delirium due to another medical condition, acute, hyperactive Visual hallucinations Depression with suicidal ideation (Acute) Intentional overdose of selective serotonin reuptake inhibitor (SSRI) (Acute) Medical History Generalized anxiety disorder History of suicidal ideation Depression Surgical History Hx of wisdom tooth extraction Family History Grandfather (Maternal) Hypertension Other Breast cancer Denies family history of Ovarian cancer Prostate cancer Lung cancer Colorectal cancer Social History Smoking Status: Light tobacco smoker Tobacco Type: Cigarettes and Pipe Second Hand Exposure: No; Do You Dip or Chew Tobacco: No; Hx Alcohol Use: Yes Alcohol type: hard liquor Hx Substance Use: Yes Last Used Substance Other:: pt states he quit Preferred Language: Korean Communication Ability: Effective Visual Impairment: No Limitations Hearing Ability: Normal Project Landscape Architect Required: No Beliefs That Will Affect Care: None Current Living Situation Comment: roomate current occupational status: student How many Children do You have: 0 Feels Safe at Home: Yes Childhood Exposure to Second-Hand Smoke: No caffeine: Yes Dental Care, Regularly: Yes Physical Activity Frequency: 3-4 Times per Week Gender Identity: Male Assistive Devices: None Review of Systems Review of Systems: See HPI above Physical Exam Physical Exam: General: no acute distress; non-toxic appearing; cooperative HEENT: normocephalic, atraumatic; no scleral icterus; dilated pupils; PERRLA; vision and hearing grossly intact Neck: supple; no lymphadenopathy; trachea midline Skin: warm, dry without signs of tenting; no cyanosis; no rashes, bruising, lesions, or erythema noted CV: chest wall NTP; RR, mildly tachycardic around 100 bpm; S1/S2 normal; no murmurs/rubs/gallops; bounding pulses intact and symmetric at radial, DP, and PT Lungs: no acute respiratory distress; symmetrical chest wall expansion; clear breath sounds across all lung cornelius w/o adventitious sounds; no wheezing ABD: Soft, NTP; BS present; no rebound/guarding; no distention; no rashes or bruising noted on the abdomen or flanks bilaterally MSK: Tremors; restless legs; no edema noted in the LEs b/l, nonerythematous Neuro: Patient is A&O x 3; however, he does exhibit some restlessness, difficulty focusing, and unsteady gaze; hyperreflexia assessed via reflex hammer at the patella bilaterally; coherent thought processes; he reports sensation intact and symmetric in the LEs bilaterally Results & Data Results & Data Laboratory Results Repeat labs ordered, pending ECG Additional Comments: ECG on arrival revealed NSR at 79 bpm; QTc 408 Will order repeat EKG in the setting of new onset tachycardia Code Status & VTE Plan Code Status Full code VTE Prophylaxis Plan VTE Prophylaxis will be ordered: Yes Supervising Physician Co-Signing Physician Notes I personally saw and examined the patient. I independently reviewed the labs, EKG, imaging, problem list, medication list, past medical history and family history. I verified all morel points and agree with Perry Smith PA-C with the following exceptions and/or additions: 18 year old male seen on for concerns for serotonin syndrome after taking intentional overdose O/E Alert and orientated x3, agitated, inducible clonus, hyperreflexia b/l knee reflexes equal. HS tachycardic, regular rhythm, no murmurs, Chest CTAB, Abdo SNT A/P Intentional overdose of SSRI with serotonin syndrome - mild symptoms. Ativan PRN. consult psychiatry PG Care Time/CCT Total # of Minutes Spent Total Time Spent with Patient: Total time spent is greater than 50% in coordination of care (as documented) at patient's floor/unit and/or counseling patient: [place] [address] INT INP/OBS CARE 3/75MIN Patient Type New Medical Decision Making High Complexity Diagnoses Intentional overdose of selective serotonin reuptake inhibitor (SSRI) T43.222A Encounter type: initial encounter Visual hallucinations R44.1 Depression with suicidal ideation F32.A; R45.851 (1) Intentional overdose of selective serotonin reuptake inhibitor (SSRI) Encounter type: initial encounter Qualified Code(s): T43.222A - Poisoning by selective serotonin reuptake inhibitors, intentional self-harm, initial encounter
[2023-12-30] MEDS ORDERED: LORazepam 2 MG/1 ML VIAL IV PRN (10:51)
[2023-12-30] MEDS ORDERED: ACETAMINOPHEN 325 MG TAB PO PRN (10:51)
[2023-12-30] MEDS ORDERED: MAGNESIUM HYDROXIDE SUSP 30 ML UDC PO PRN (10:51)
[2023-12-30] MEDS ORDERED: ALUMINUM/MAGNESIUM SUSP 30 ML UDC PO PRN (10:51)
[2023-12-30 16:00] LABS: Basophils # (auto) 0.02 K/uL (0.00-0.20); Basophils % (auto) 0.3 %; Eosinophils # (auto) 0.01 K/uL (0.00-0.50); Eosinophils % (auto) 0.1 %; Hematocrit (blood only) 41.6 % (42.0-52.0); Hemoglobin 15.1 g/dl (14.0-18.0); Immature Granulocytes # (auto) 0.01 K/uL (0.01-0.20); Immature Granulocytes % (auto) 0.1 %; Lymphocytes % (auto) 27.1 %; Mean Corpuscular Hemoglobin 30.8 pg (25.0-34.0); Mean Corpuscular Hgb Conc 36.3 g/dL (32.0-36.0); Mean Corpuscular Volume 84.7 fL (80.0-100.0); Mean Platelet Volume 10.6 fL (9.4-12.4); Monocytes # (auto) 0.79 K/uL (0.11-0.59); Monocytes % (auto) 10.7 %; Neutrophils # (auto) 4.56 K/uL (1.40-6.50); Neutrophils % (auto) 61.7 %; Platelet Count 232 K/uL (130-400); RDW Coefficient of Variation 11.7 % (11.5-14.5); Red Blood Count 4.91 M/uL (4.70-6.10); White Blood Count 7.39 K/ul (4.8-10.8)
[2023-12-30 16:10] LABS: Albumin Level 4.9 gm/dl (3.4-5.0); BUN Creatinine Ratio 11.8 (10-20); Bilirubin,Total 1.1 mg/dl (0.2-1.0); Calcium 9.6 mg/dl (8.6-10.3); Creatinine Clr Calc Pharmacy 92.2 ml/min; Globulin 2.5 gm/dl (2.5-4.0); Potassium 3.9 mmol/L (3.5-5.1); Total Protein 7.4 gm/dl (6.0-8.3)
--- NOTE | 2023-12-30 16:19 | Electrocardiogram Report ---
Test Reason : Blood Pressure : */* mmHG Vent. Rate : 85 BPM Atrial Rate : 85 BPM P-R Int : 130 ms QRS Dur : 86 ms QT Int : 358 ms P-R-T Axes : 80 74 68 degrees QTcB Int : 426 ms Normal sinus rhythm with sinus arrhythmia Normal ECG When compared with ECG of 29-Dec-2023 14:49, No significant change was found Confirmed by Avery Tavarez ([id number]) on 12/30/2023 4:19:31 PM Referred By: Kentrell Cooper Confirmed By: Avery Tavarez
[2023-12-30] MEDS: ONDANSETRON INJ 2 MG/ML 2 ML VIAL IV SCH (16:35)
[2023-12-30] MEDS: LACTATED RINGER'S 1,000 ML IV ONE (16:35)
[2023-12-30] MEDS: LORazepam 2 MG/1 ML VIAL IV PRN (17:22)
[2023-12-31 07:09] LABS: Basophils # (auto) 0.04 K/uL (0.00-0.20); Basophils % (auto) 0.7 %; Eosinophils # (auto) 0.06 K/uL (0.00-0.50); Hematocrit (blood only) 45.6 % (42.0-52.0); Hemoglobin 15.7 g/dl (14.0-18.0); Immature Granulocytes # (auto) 0.01 K/uL (0.01-0.20); Immature Granulocytes % (auto) 0.2 %; Lymphocytes # (auto) 2.55 K/uL (1.20-3.40); Lymphocytes % (auto) 43.3 %; Mean Corpuscular Hemoglobin 30.3 pg (25.0-34.0); Mean Corpuscular Hgb Conc 34.4 g/dL (32.0-36.0); Mean Platelet Volume 10.9 fL (9.4-12.4); Monocytes # (auto) 0.75 K/uL (0.11-0.59); Monocytes % (auto) 12.7 %; Neutrophils # (auto) 2.48 K/uL (1.40-6.50); Neutrophils % (auto) 42.1 %; Platelet Count 237 K/uL (130-400); RDW Coefficient of Variation 11.9 % (11.5-14.5); RDW Standard Deviation 38.3 fL (36.4-46.3); Red Blood Count 5.18 M/uL (4.70-6.10); White Blood Count 5.89 K/ul (4.8-10.8)
[2023-12-31 07:49] LABS: BUN Creatinine Ratio 17.3 (10-20); Calcium 9.9 mg/dl (8.6-10.3); Creatinine Clr Calc Pharmacy 88.8 ml/min; Magnesium 2.1 mg/dl (1.7-2.4); Potassium 4.1 mmol/L (3.5-5.1)
--- NOTE | 2023-12-31 13:29 | Discharge Summary ---
Discharge Summary Date of Service December 31, 2023 Principal Dx & Hospital Course #1 = Principal Diagnosis (1) Intentional overdose of selective serotonin reuptake inhibitor (SSRI): Intentional overdose; patient reports that he took 29 tablets of 50 mg Zoloft (1450 mg) around 1330 on 12/28 1 prior suicide attempt; hanging in spring 2023 Patient denies any co-ingestions UDS, APAP, ASA, EtOH all negative on arrival Patient was initially admitted to the psychiatry/BHU, but developed restlessness/hyperreflexia/tachycardia overnight, and also reported visual hallucinations. He was treated with 4 mg total of po ativan and hospitalist service consulted- with concern for serotonin syndrome Reached out to [place] poison control on admission They recommended continued benzodiazepines that can be given up to 1 to 2 mg every 20 to 30 minutes as needed until clinical effect Recommended fluid for tachycardia Did not recommend cyproheptadine as this is rarely used nowadays, but if patient is refractory would follow-up with toxicology-he did not require this Tele with sinus tachycardia which improved with IV fluids, time, and one dose of IV ativan, no other arrhythmias ECG normal, CBC, BMP normal One-to-one observation; safe tray Stable from medical standpoint for discharge on 12/30.Discussed care with Psych nurse liaison (2) Visual hallucinations: Developed overnight on the evening of 12/28 Patient reports this is new for him now resolved, likely related to overdose Also had some brief double vision which is now resolved (3) Depression with suicidal ideation: Patient denies SI, thoughts of self-harm, or thoughts of harming others on the morning of 12/29, but defer to Psych for further eval/treatment Plan Disposition: discharge from tele, stable for dc to U VTE PPx: Low risk, encourage ambulation Notes For Next Care Provider None Medication Changes From Visit Stopped sertraline Admission HPI Per Admitting Provider Tenzin is a 18-year-old male with PMH of depression and suicidal ideations. He initially presented to the ED on 12/28 after an intentional overdose. He ingested a bottle of sertraline (29 tablets; approximately 1450 mg) around 1330 on 12/28, which was intentional. Patient does have a history of suicidal ideations and previous attempt. He was initially admitted to the behavioral health/psychiatry on arrival, however shortly after getting on the BHU he became increasingly agitated/delirious. Behavioral health reached out around 9:30 AM on 12/29 after patient began to develop confusion, tachycardia, hallucinations, and hyperreflexia; concern for serotonin syndrome. [facility] course: Ativan 1 mg p.o. x 4 At time of consult, patient reports he does feel tremulous and anxious. He does confirm that he ingested around 29 pills of Zoloft. He denies any co- ingestions. He reports he smoked 1 cigar in the living room prior to taking the Zoloft. No recent alcohol use; last drink was last on 12/24, and reports he only had a shot at dinner. He denies any recreational drug use; reports he quit smoking marijuana. Patient denies history of seizures. While he had no documented fevers overnight, he did report that he felt feverish and developed visual hallucinations overnight. He reports he was seeing "geometry" play out on the mendoza like a "circus". He is unsure if he had any auditory hallucinations, or if he was just dreaming at certain points last night. Patient denies having any suicidal ideations, thoughts of self-harm, or thoughts of harming others at time of admission. He does have a prior suicide attempt; attempted to hang himself in the spring 2023. 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 Patient is hypertensive at 141/87 at time of consultation; vitals otherwise stable. ROS: Patient endorses fever, chills, night-sweats, dizziness, diplopia, visual hallucinations, chest pressure, cough, dry heaves, or diarrhea. Patient denies headache, chest pain, pleuritic CP, SOB, abdominal pain, vomiting, or numbness/tingling in the arms or legs. Discharge Exam Constitutional WD/WN, vitals as above Eyes PERRL, conjunctivae normal, anicteric sclerae normal accommodation and EOM intact bilaterally; eyes not dysmorphic, no anisocoria, normal pupil size and no nystagmus ENMT external ear and nose normal, oropharynx normal Respiratory normal respiratory effort, lungs clear to auscultation Cardiovascular RRR, no murmur, no edema Skin no rashes, warm and dry Psychiatric A+Ox3, euthymic affect Discharge Plan Discharge Items Patient Disposition: Transfer Behavioral Health Fac Reason For Visit: SUICIDE ATTEMPT, VISUAL HALLUCINATIONS Discharge Diagnosis: Serotonin syndrome Suicidal attempt, intentional overdose Condition on Discharge: Good Activity: Resume your previous activity Non-emergency contact: Primary Care Provider and Psychiatrist Call non-emergency contact if: you have any medication questions and your symptoms worsen Follow-up/Referrals: Jose Elias Mosher CRNP [Primary Care Provider] - Diet: Regular Addtl Attending Provider Instructions: You were admitted with an overdose of sertraline. Your symptoms have improved and it is safe for you to be discharged from a medical standpoint from the hospital. Pending Studies at Discharge: No Stand-Alone Forms: [facility] Skilled Items DNR: No Lines: None Urinary Catheter: No Medications and DC Order Prescriptions: Discontinued sertraline [Zoloft] 50 mg Tablet See Rx Instructions .ROUTE .COMPLEX Rx Instructions: Start Date 12/28/23; Take 25mg by mouth daily for 2 weeks; then increase to 50mg by mouth daily thereafter Discharge Orders: Discharge Order (Routine); Ordered 12/31/23 Ordered By: Shyanne Gama Admission Data Admit Date/Time: 12/30/23 14:56 Attending Provider: Shyanne Gama Admit Provider: Kentrell Cooper Primary Care Provider: Jose Elias Mosher Other Providers: Vanessa Warner; Mykel Carolina; Marcos Hitchcock Jr; Elvia Márquez; Rhianna Montesnios; Moses Jacobs; Sunshine Hernandez Hospital Stay Data Consultations 12/30/23 10:51 Consult Psychiatry Routine 12/30/23 15:20 Consult Behavioral Health Liaison Routine Pending Results Patient Have Any Pending Studies at Discharge: No Discharge Instructions Given to Patient (Per Discharging Provider) You were admitted with an overdose of sertraline. Your symptoms have improved and it is safe for you to be discharged from a medical standpoint from the hospital. Total Time Total Time Spent Total Time Spent (In Minutes): 35 min Total Time Includes: Examination of the Patient, Discharge Planning, Medication Reconciliation and Communication With Other Providers (Psych) Coding Level of Care Code 14291 INP/OBS DISCH >30 MIN Diagnoses Intentional overdose of selective serotonin reuptake inhibitor (SSRI) T43.222A Encounter type: initial encounter Visual hallucinations R44.1 Depression with suicidal ideation F32.A; R45.851
== END 2023-12-31 19:51 | DRG 881 ==
LOC: 2E 14:56 → SUATTDRO 14:56
DX: F17.290 Nicotine dependence, other tobacco product, uncomplicated; R00.0 Tachycardia, unspecified; F32.A Depression, unspecified; T43.222A Poisoning by selective serotonin reuptake inhibitors, intentional self-harm, initial encounter; R44.1 Visual hallucinations; I10 Essential (primary) hypertension; Z91.51 Personal history of suicidal behavior; R45.851 Suicidal ideations

== ENCOUNTER 2023-12-31 19:52 | Inpatient (IN) ==
[2023-12-31] MEDS ORDERED: hydrOXYzine HCl 25 MG TAB PO PRN (20:16)
[2023-12-31] MEDS ORDERED: BISMUTH SUBSALICYLATE 262 MG CHEW PO PRN (20:16)
[2023-12-31] MEDS ORDERED: ALUMINUM/MAGNESIUM SUSP 30 ML UDC PO PRN (20:16)
[2023-12-31] MEDS ORDERED: SODIUM CHLORIDE 0.65% NA SOLN 45 ML (OCEAN) PRN (20:16)
[2023-12-31] MEDS ORDERED: MAGNESIUM HYDROXIDE SUSP 30 ML UDC PO PRN (20:16)
[2023-12-31] MEDS ORDERED: ACETAMINOPHEN 325 MG TAB PO PRN (20:16)
--- NOTE | 2024-01-01 16:11 | History & Physical ---
Date of Service January 01, 2024 Impression / Recommendations Impression 18 yr old M with prior history of depression & anxiety, presenting with intentional sertraline overdose requiring medical monitoring due to beginnings of delirium and possible serotonin syndrome. Currently denying depression and with anxious but "happy" affect - suspect that patient has limited insight into severity of overdose, vs is exhibit defense of repression and humor. Reports a history of symptoms consistent with MDD recurrent severe without psychotic fx & PRASANNA. (1) Major depressive disorder, recurrent severe without psychotic features: (2) Generalized anxiety disorder: (3) Intentional overdose of selective serotonin reuptake inhibitor (SSRI): Encounter type: initial encounter Qualified Code(s): T43.222A - Poisoning by selective serotonin reuptake inhibitors, intentional self-harm, initial encounter Plan Defer medication at this time - would benefit from having some more time without serotonergic agent and need to elucidate further any other underlying diagnoses that may be contributing given his significantly negative reaction to ssri trial. Will reassess tomorrow once patient has some time to adjust to mileu and bring down his defenses. Continued inpatient hospitalization is medically necessary for ongoing monitoring and safety. The patient was admitted to the [facility] on q15 min checks (behavioral with suicide precautions) for safety. The patient will participate in group, recreational, and milieu therapies and will be offered additional individual and family sessions as clinically appropriate. Overall, I spent a total of 80 minutes with this case, including review of chart, direct evaluation of the patient, counseling the patient, coordination with nursing,coordination of care with hospitalist service, risk assessment, and documentation. Inventory Assets Strengths: intelligence, social supports Needs: therapeutic support, to improve insight into contributing factors & risks of recent attempt Risk Factors Assessment Male: Yes : Yes Do You Have Access To A Gun?: No Health Problems: No Mental Health Diagnoses: Yes Substance Use Disorders: Yes (intermittently uses substances) Previous Attempt: Yes Family History of Suicide: No Previous Psychiatric Hospitalization: No Hopelessness: No Protective Factors Assessment Baptism Beliefs: No : No Responsible for Young Children: No Employed: No Stable Relationships: Yes Supportive Family: No Good Rapport with Provider: Yes Absence of Any Risk Factors Above: Yes Psychiatric History Identifying Data MASON CRENSHAW is a 18-year-old M who currently lives in student housing with roommates, has a history of unspecified depression, and was admitted on 12/31/23 19:52 on a 201 voluntary commitment for SA via OD on 29 tabs of zoloft 50mg. Patient was observed in ED initially, however upon arrival to the floor was found to be delirious with suspicion of possible serotonin syndrome. Was transferred to medical floors for management and then returned to for psychiatric management once medically stabilized. Chief Complaint "I'm really upset at this suicide attempt, I was just starting to get back on track". History of Present Illness MASON CRENSHAW is a 18-year-old M who currently lives in student housing with roommates, has a history of unspecified depression, and was admitted on 12/31/23 19:52 on a 201 voluntary commitment for SA via OD on 29 tabs of zoloft 50mg. Patient was observed in ED initially, however upon arrival to the floor was found to be delirious with suspicion of possible serotonin syndrome. Was transferred to medical floors for management and then returned to for psychiatric management once medically stabilized. Patient reports OD being impulsive in nature - was not planning it out in advance, rather was feeling increasingly more overwhelmed and that day happened to see the pills and impulsively took them (says had no thought about this). Quickly after doing so thought "Oh sh why did I do that?". Reached out to a friend and came to ED as he was scared that he might actually experience harm. He does also report 1 prior impulsive attempt last year (tried hanging self by fashioning rope out of clothes/sheets), however saw himself in the mirror and could not go through with it. He reports a long history of depression, first starting in middle school. Described as episodic in nature, though with usually specific triggers. Describes isolation, anhedonia, amotivation, low energy, negative ruminations, decreased appetite, disrupted sleep and times of SI as above. Can last weeks or more. Also long history of anxiety - generalized in nature, ruminations, overthinking, excessive worry, feeling overwhelmed by stressors. Anxiety persists even when not depressed. Of note patient also describes symptoms that sound like possible ADHD, describes the following since childhood: restlessness, difficulty sitting still, impulsivity, emotional reactivity, inattention, procrastination, difficulty maintaining focus, often interrupting, talking excessively, forgetfulness, often losing belongings. Describes these symptoms as significantly impacting his daily life - although does well in school, finds self struggling to get work done unless it's the night before, which results in significant anxiety and stress. DIfficult to gauge however if truly ADHD or PRASANNA/depression interfering with executive function. Patients social history is significant in regard to affecting his mood s ymptoms. Describes relationship with parents as discordant and distant. Father is arabic, immigrated from [place], described by patient as highly critical. Also describes lack of emotional support while growing up and now - remembers being in middle school and crying in class, when mom picked him up remembers her saying "don't do that again in public" but never inquiring about why he cried. Reports experiencing significant emotional abuse while growing up. Says that he has always felt a pressure to be less emotional and be "successful", describes significant portion of his anxiety as relating to this. He does have a large and supportive friend group with whom he shares and goes to for support. He acknowledges the need for therapy to help him work through the above. Of note, about a month ago was started on fluoxetine by pcp - took for about 3 weeks and describes feeling acutely worse from it. Was switched to zoloft 50mg, took for 1 day and then overdosed. Patient believes that this response to fluoxetine contributed to overdose as prior to starting it and worsening, he had been gradually feeling less depressed. Past Psychiatric History Previous Psych History: none prior Current Psychiatric Diagnosis: Depression NOS Outpatient Services: none prior, ssri prescribed by pcp Previous Psych Admissions: none Do You Have Access To A Gun?: No History of Previous Suicide Attempt: Yes Describe Attempts in the Past: see hpi Past Medication Trials: see hpi Past Head Trauma/Neuro History denies Allergies Allergy/AdvReac Type Severity Reaction Status Date / Time No Known Allergies Allergy Verified 12/26/23 10:20 Home Medications Medication Instructions Recorded Confirmed Type sertraline 50 mg tablet (Zoloft) 50 mg PO DAILY 01/01/24 01/01/24 History Family History Family History of: None Alcohol History Hx of Alcohol Use Over the Past 12 Months: Yes (1-2 drinks per occasion every other week.) AUDIT Total Score: 3 Smoking Use Have You Smoked or Used Tobacco Products in the Last 30 Days: Yes Smoking Status: Light tobacco smoker Substance History Hx of Prescription Med Misuse Over the Past 12 Months: Yes (Intentional overdose on Zoloft) Hx of Over the Counter Med Misuse Over the Past 12 Months: No Hx of Inhalent Misuse Over the Past 12 Months: No Hx of Organic Substance Use Over the Past 12 Months: No Hx of Illegal Substances/Street Drug Use Over Past 12 Months: No Problems as a Result of Past Substance Use: Attempted Suicide Personal History Living Arrangements: Apartment Living Arrangements Comments: College Housing Highest Grade Completed: Some College Highest Grade Completed Comment: [employer]if at [employer] in Physics Marital Status: Single Number Of Children: 0 Beliefs That Will Affect Care: None Hx Legal Problems: No Hx Traumatic Life Events: Yes (see hpi) Patient History Medical History Generalized anxiety disorder History of suicidal ideation Depression Surgical History Hx of wisdom tooth extraction Family History Grandfather (Maternal) Hypertension Other Breast cancer Denies family history of Ovarian cancer Prostate cancer Lung cancer Colorectal cancer Social History Smoking Status: Light tobacco smoker Tobacco Type: Cigarettes and Pipe Second Hand Exposure: No; Do You Dip or Chew Tobacco: No; Hx Alcohol Use: Yes Alcohol type: hard liquor Hx Substance Use: Yes Last Used Substance Other:: pt states he quit Preferred Language: Azeri Communication Ability: Effective Visual Impairment: No Limitations Hearing Ability: Normal Strategy Director Required: No Beliefs That Will Affect Care: None Current Living Situation Comment: roomate current occupational status: student How many Children do You have: 0 Feels Safe at Home: Yes Childhood Exposure to Second-Hand Smoke: No caffeine: Yes Dental Care, Regularly: Yes Physical Activity Frequency: 3-4 Times per Week Gender Identity: Male Assistive Devices: None Physical Exam Psychiatric: Orientation: alert and oriented x 3 Apperance: appropriately dressed, appropriately groomed and appeared stated age Eye Contact: good eye contact Motor Behavior: steady gait and station and no abnormal motor movements Speech: normal rate/rhythm/volume of speech (logorrheic) Affect: euthymic affect Mood: + anxious mood Thought Process: goal directed thought process and linear/logical thought process Thought Content: + cognitive distortions, reality based without delusions and + self deprecation Suicidal Thoughts: denies suicidal thoughts, denies suicidal plan and denies suicidal intent denies suicidal intent prior to overdose as well, patient presents as quite impulsive and not clear extent of insight as to severity of overdose Homicidal Thoughts: denies homicidal thoughts Hallucinations: no auditory hallucinations, no visual hallucinations, no tactile hallucinations and no gustatory hallucinations Cognition: recent memory grossly intact, remote memory grossly intact, attention grossly intact and language grossly intact Estimated Intelligence: consistent with education level Insight: + limited insight Judgment: + poor judgement Vital Signs (Past 24 Hours): Last Vital Signs Temp 36.8 C 01/01/24 06:36 Pulse 120 H 01/01/24 06:37 Resp 16 01/01/24 06:36 BP 136/91 01/01/24 06:37 Pulse Ox 96 12/31/23 20:51 O2 Del Method Room Air 12/31/23 20:51 Exam Statement: A physical exam was performed on the floors by Dr. Gama for the purposes of medical clearance. I accept that physical as correct and adequate for the purposes of the inpatient physical exam. Results & Data ([facility]) Current Inpatient Medications Current Inpatient Medications: Current Inpatient Medications Acetaminophen (Acetaminophen 325 Mg Tab) 650 mg PO Q4H PRN PRN Reason: Headache or Minor Fever Stop: 01/30/24 20:15 Al Hydrox/Mg Hydrox/Simethicone (Aluminum/Magnesium Susp 30 Ml Udc) 30 ml PO Q4H PRN PRN Reason: GI Upset Stop: 01/30/24 20:15 Bismuth Subsalicylate (Bismuth Subsalicylate 262 Mg Chew) 2 tab PO Q30M PRN PRN Reason: Loose Stool/Diarrhea Stop: 01/30/24 20:15 Hydroxyzine HCl (Hydroxyzine Hcl 25 Mg Tab) 50 mg PO HSZ PRN PRN Reason: Insomnia Stop: 01/30/24 20:15 Hydroxyzine HCl (Hydroxyzine Hcl 25 Mg Tab) 25 mg PO Q4H PRN PRN Reason: Anxiety Stop: 01/30/24 20:15 Magnesium Hydroxide (Magnesium Hydroxide Susp 30 Ml Udc) 30 ml PO DAILY PRN PRN Reason: Constipation Stop: 01/30/24 20:15 Sodium Chloride (Sodium Chloride 0.65% Na Soln 45 Ml ([place])) 1 - 2 sprays NA PRN PRN PRN Reason: Nasal Dryness/Congestion Stop: 01/30/24 20:15
[2024-01-01] MEDS: hydrOXYzine HCl 25 MG TAB PO PRN (22:06)
--- NOTE | 2024-01-02 16:05 | Psychiatric Progress Note ---
Date of Service January 02, 2024 Impression / Recommendations Impression 18 yr old M with prior history of depression & anxiety, presenting with intentional sertraline overdose requiring medical monitoring due to beginnings of delirium and possible serotonin syndrome. Currently denying depression and with anxious but "happy" affect - suspect that patient has limited insight into severity of overdose, vs is exhibit defense of repression and humor. Reports a history of symptoms consistent with MDD recurrent severe without psychotic fx & PRASANNA. (1) Major depressive disorder, recurrent severe without psychotic features: (2) Generalized anxiety disorder: (3) Intentional overdose of selective serotonin reuptake inhibitor (SSRI): Plan 01/02/24: Trial of Wellbutrin XL 150mg daily Given ADHD questionnaire Continued inpatient hospitalization is medically necessary for ongoing monitoring and safety. The patient was admitted to the [facility] ([facility] mental [facility] unit) on q15 min checks (behavioral with suicide precautions) for safety. The patient will participate in group, recreational, and milieu therapies and will be offered additional individual and family sessions as clinically appropriate. Overall, I spent a total of 45 minutes with this case, including review of chart, direct evaluation of the patient, counseling the patient, coordination with nursing,treatment team discussion, risk assessment, and documentation. Risk Factors Assessment Do You Have Access To A Gun?: No Interval History Identifying Information MASON CRENSHAW is a 18-year-old M who currently lives in student housing with roommates, has a history of unspecified depression, and was admitted on 12/31/23 19:52 on a 201 voluntary commitment for SA via OD on 29 tabs of zoloft 50mg. Patient was observed in ED initially, however upon arrival to the floor was found to be delirious with suspicion of possible serotonin syndrome. Was transferred to medical floors for management and then returned to for psychiatric management once medically stabilized. Chief Complaint "I'm adjusting". Review of Systems Sleep Information Total Hours of Sleep: 6.30 Sleep Comments: PRN Vistaril given Meal Information Percent Meal Consumed - Breakfast: 100 Percent Meal Consumed - Lunch: 100 Percent Meal Consumed - Dinner: 90 Subjective Subjective Patient was seen & assessed and interval progress reviewed with treatment team. Has been adjusting to milieu well - continues to exhibit significant defenses as he is often laughing and joking with peers & staff. Initially presents similarly when interview starts, however after some time is able to discuss some of his stressors (including familial) and with appropriate affect. Patient admits he struggles with allowing himself to feel more negative or more difficult emotions and is able to appreciate the importance of working through this therapeutically in order to not just improve, but to sustain improvement in the future. Anxiety persists to a significant degree with ruminations and overthinking. Explored prior symtpoms a bit more - patient has also in the past questioned the possibility of adhd, in particular because of his difficulty managing impulsivity and hyperactivity, both of which significantly impact his daily life. See prior note for more detail. Discussed trial of Wellbutrin as this may help with mood, possibly anxiety (in particular if there is indeed adhd), and off label for possible adhd. Given his recent negative experience with 2 ssri's this may be a better choice, and patient indeed feels more comfortable with this than another ssri or snri. Physical Exam Psychiatric Orientation: alert and oriented x 3 Apperance: appropriately dressed, appropriately groomed and appeared stated age Eye Contact: good eye contact Motor Behavior: steady gait and station and no abnormal motor movements Speech: normal rate/rhythm/volume of speech (logorrheic) Affect: euthymic affect Mood: + anxious mood Thought Process: goal directed thought process and linear/logical thought process Thought Content: + cognitive distortions, reality based without delusions and + self deprecation Suicidal Thoughts: denies suicidal thoughts, denies suicidal plan and denies suicidal intent Homicidal Thoughts: denies homicidal thoughts Hallucinations: no auditory hallucinations, no visual hallucinations, no tactile hallucinations and no gustatory hallucinations Cognition: recent memory grossly intact, remote memory grossly intact, attention grossly intact and language grossly intact Estimated Intelligence: consistent with education level Insight: + limited insight Judgment: + poor judgement Vital Signs (Past 24 Hours) Last Vital Signs Temp 36.5 C 01/02/24 06:42 Pulse 88 01/02/24 06:42 Resp 16 01/02/24 06:42 BP 110/68 01/02/24 06:42 Pulse Ox 96 12/31/23 20:51 O2 Del Method Room Air 12/31/23 20:51 Results & Data ([facility]) Current Inpatient Medications Current Inpatient Medications: Current Inpatient Medications Acetaminophen (Acetaminophen 325 Mg Tab) 650 mg PO Q4H PRN PRN Reason: Headache or Minor Fever Stop: 01/30/24 20:15 Al Hydrox/Mg Hydrox/Simethicone (Aluminum/Magnesium Susp 30 Ml Udc) 30 ml PO Q4H PRN PRN Reason: GI Upset Stop: 01/30/24 20:15 Bismuth Subsalicylate (Bismuth Subsalicylate 262 Mg Chew) 2 tab PO Q30M PRN PRN Reason: Loose Stool/Diarrhea Stop: 01/30/24 20:15 Hydroxyzine HCl (Hydroxyzine Hcl 25 Mg Tab) 50 mg PO HSZ PRN PRN Reason: Insomnia Stop: 01/30/24 20:15 Last Admin: 01/01/24 22:06 Dose: 50 mg Hydroxyzine HCl (Hydroxyzine Hcl 25 Mg Tab) 25 mg PO Q4H PRN PRN Reason: Anxiety Stop: 01/30/24 20:15 Magnesium Hydroxide (Magnesium Hydroxide Susp 30 Ml Udc) 30 ml PO DAILY PRN PRN Reason: Constipation Stop: 01/30/24 20:15 Sodium Chloride (Sodium Chloride 0.65% Na Soln 45 Ml ([place])) 1 - 2 sprays NA PRN PRN PRN Reason: Nasal Dryness/Congestion Stop: 01/30/24 20:15 Mental Health & Subst Abuse Tx Psychiatrist Name of Psychiatrist: Emanuel Psychiatrist's Psychiatric Appointment Comment: They will schedule an appointment after your therapy appointment Therapist Name of Therapist: Emanuel Meeks Therapist's Date of Therapist Appointment: 01/06/2024 Time of Therapist Appointment: 1800 Therapy Appointment Comment: [address], [address], [place] Please arrive 20 mins early Post Discharge Appointments Primary Care Physician Name Of Family Doctor/PCP: Jose Elias [facility] Specialist Name of Specialist: [facility] JEFFREY-Ana Montesinos (3) Intentional overdose of selective serotonin reuptake inhibitor (SSRI) Encounter type: initial encounter Qualified Code(s): T43.222A - Poisoning by selective serotonin reuptake inhibitors, intentional self-harm, initial encounter
--- NOTE | 2024-01-02 18:36 | Psychiatric Progress Note ---
Date of Service January 02, 2024 Impression / Recommendations Risk Factors Assessment Do You Have Access To A Gun?: No Interval History Chief Complaint "[]". Review of Systems Sleep Information Total Hours of Sleep: 6.30 Sleep Comments: PRN Vistaril given Meal Information Percent Meal Consumed - Breakfast: 100 Percent Meal Consumed - Lunch: 100 Percent Meal Consumed - Dinner: 90 Subjective Subjective Patient was seen & assessed and interval progress reviewed with [treatment team] [nursing and social work] Physical Exam Vital Signs (Past 24 Hours) Last Vital Signs Temp 36.5 C 01/02/24 06:42 Pulse 88 01/02/24 06:42 Resp 16 01/02/24 06:42 BP 110/68 01/02/24 06:42 Pulse Ox 96 12/31/23 20:51 O2 Del Method Room Air 12/31/23 20:51 Results & Data ([facility]) Current Inpatient Medications Current Inpatient Medications: Current Inpatient Medications Acetaminophen (Acetaminophen 325 Mg Tab) 650 mg PO Q4H PRN PRN Reason: Headache or Minor Fever Stop: 01/30/24 20:15 Al Hydrox/Mg Hydrox/Simethicone (Aluminum/Magnesium Susp 30 Ml Udc) 30 ml PO Q4H PRN PRN Reason: GI Upset Stop: 01/30/24 20:15 Bismuth Subsalicylate (Bismuth Subsalicylate 262 Mg Chew) 2 tab PO Q30M PRN PRN Reason: Loose Stool/Diarrhea Stop: 01/30/24 20:15 Hydroxyzine HCl (Hydroxyzine Hcl 25 Mg Tab) 50 mg PO HSZ PRN PRN Reason: Insomnia Stop: 01/30/24 20:15 Last Admin: 01/01/24 22:06 Dose: 50 mg Hydroxyzine HCl (Hydroxyzine Hcl 25 Mg Tab) 25 mg PO Q4H PRN PRN Reason: Anxiety Stop: 01/30/24 20:15 Magnesium Hydroxide (Magnesium Hydroxide Susp 30 Ml Udc) 30 ml PO DAILY PRN PRN Reason: Constipation Stop: 01/30/24 20:15 Sodium Chloride (Sodium Chloride 0.65% Na Soln 45 Ml ([place])) 1 - 2 sprays NA PRN PRN PRN Reason: Nasal Dryness/Congestion Stop: 01/30/24 20:15 Mental Health & Subst Abuse Tx Psychiatrist Name of Psychiatrist: Emanuel Psychiatrist's Psychiatric Appointment Comment: They will schedule an appointment after your therapy appointment Therapist Name of Therapist: Emanuel Meeks Therapist's Date of Therapist Appointment: 01/06/2024 Time of Therapist Appointment: 1800 Therapy Appointment Comment: [address], [address], [place] Please arrive 20 mins early Post Discharge Appointments Primary Care Physician Name Of Family Doctor/PCP: Jose Elias [facility] Specialist Name of Specialist: [facility] JEFFREY-Ana Montesinos
[2024-01-03] MEDS: buPROPion XL 150 MG TABCR PO SCH (08:41)
--- NOTE | 2024-01-03 09:50 | Psychiatric Progress Note ---
Date of Service January 03, 2024 Impression / Recommendations Impression MASON CRENSHAW is a 18-year-old man and [employer] student with a history of unspecified depression, and was admitted on 12/31/23 19:52 on a 201 voluntary commitment for suicide attempt via overdose on 29 tabs of sertraline 50mg after requiring medical admission for suspected serotonin syndrome now stabilized for psychiatric inpatient treatment. Diagnostically consistent with major depressive disorder and generalized anxiety disorder and possible co-occurring ADHD (though never formally diagnosed). Poor response to serotonergic agents in the past, Wellbutrin trial very appropriate given this especially given concern for possible ADHD contributing to burnout and driving factors to attempt. Tolerating initial Wellbutrin dose so far, will continue to monitor. Overall, I spent a total of 50 minutes on this case including meeting with the patient, reviewing the chart, nursing report, multidisciplinary team meeting, orders, and documentation. (1) Major depressive disorder, recurrent severe without psychotic features: (2) Generalized anxiety disorder: (3) Intentional overdose of selective serotonin reuptake inhibitor (SSRI): Plan 01/03/2024: Continue Wellbutrin XL 150mg daily -CAMS and ADHD self-report symptom checklist 01/02/24: Trial of Wellbutrin XL 150mg daily The patient was admitted to the [facility] ([facility] inpatient mental health unit) on q15 min checks (behavioral with suicide precautions) for safety. The patient will participate in group, recreational, and milieu therapies and will be offered additional individual and family sessions as clinically appropriate. Inventory Assets Strengths: supportive relationships, willing to get treatment Needs: safety and stabilization, medication adjustment, additional coping skills, increased outpatient services Suicide Risk Level Suicide Risk Level: High-Moderate (q15 min suicide checks) (denying current SI but s/p serious attempt, ongoing depression but feels safe in the hospital and feels able to ask for support) Risk Factors Assessment Male: Yes : Yes Do You Have Access To A Gun?: No Health Problems: No Mental Health Diagnoses: Yes Previous Attempt: Yes Family History of Suicide: No Previous Psychiatric Hospitalization: No Hopelessness: No Protective Factors Assessment Stable Relationships: Yes Supportive Family: Yes Interval History Identifying Information MASON CRENSHAW is a 18-year-old man and [employer] student with a history of unspecified depression, and was admitted on 12/31/23 19:52 on a 201 voluntary commitment for suicide attempt via overdose on 29 tabs of sertraline 50mg after requiring medical admission for suspected serotonin syndrome now stabilized for psychiatric inpatient treatment. Chief Complaint "I'd been at a breaking point for awhile". Review of Systems Sleep Information Total Hours of Sleep: 8.30 Sleep Comments: PRN Vistaril Meal Information Percent Meal Consumed - Breakfast: 100 Percent Meal Consumed - Lunch: 100 Percent Meal Consumed - Dinner: 100 Subjective Subjective Patient was seen & assessed and interval progress reviewed with treatment team nursing and social work. Attending groups, interacting well with peers. Aki had been reluctant to involve his parents at all but called them on the phone this morning to let them know he was hospitalized. He thinks his father may come visit tomorrow. He feels his parents don't really support the use of medications but "they do love me" and he is glad he called them. He describes a history of depression which "cycles" but not in a predictable pattern, denies any seasonality to it. He feels his depression was prompted by increased stress from academics and relationships. States "I'd burnt myself out". Had two nightmares last night so didn't sleep very well. Had initial dose of Wellbutrin this morning, denies side effects from this so far. He reviewed concern that he may have ADHD, wonders if he can complete questionnaire related to this, reviewed that weaknesses of self-report scale but that could provide some beneficial additional information. Physical Exam Psychiatric Orientation: alert and oriented x 3 Apperance: appropriately dressed and appropriately groomed Eye Contact: good eye contact Motor Behavior: steady gait and station and no abnormal motor movements Speech: normal rate/rhythm/volume of speech Affect: euthymic affect; + mood not congruent with affect Mood: + depressed mood and + anxious mood Thought Process: + circumstantial thought process Thought Content: + cognitive distortions, reality based without delusions and + self deprecation Suicidal Thoughts: denies suicidal thoughts (but s/p serious attempt), denies suicidal plan and denies suicidal intent Homicidal Thoughts: denies homicidal thoughts Hallucinations: no auditory hallucinations, no visual hallucinations, no tactile hallucinations and no gustatory hallucinations Cognition: recent memory grossly intact, remote memory grossly intact, attention grossly intact and language grossly intact Estimated Intelligence: consistent with education level Insight: + limited insight Judgment: + limited judgement Vital Signs (Past 24 Hours) Last Vital Signs Temp 36.6 C 01/03/24 06:54 Pulse 51 L 01/03/24 06:54 Resp 16 01/03/24 06:54 BP 115/79 01/03/24 06:54 Pulse Ox 97 01/03/24 06:54 O2 Del Method Room Air 01/03/24 06:54 Results & Data ([facility]) Current Inpatient Medications Current Inpatient Medications: Current Inpatient Medications Acetaminophen (Acetaminophen 325 Mg Tab) 650 mg PO Q4H PRN PRN Reason: Headache or Minor Fever Stop: 01/30/24 20:15 Al Hydrox/Mg Hydrox/Simethicone (Aluminum/Magnesium Susp 30 Ml Udc) 30 ml PO Q4H PRN PRN Reason: GI Upset Stop: 01/30/24 20:15 Bismuth Subsalicylate (Bismuth Subsalicylate 262 Mg Chew) 2 tab PO Q30M PRN PRN Reason: Loose Stool/Diarrhea Stop: 01/30/24 20:15 Bupropion HCl (Bupropion Xl 150 Mg Tabcr) 150 mg PO QAM ELSY Stop: 02/02/24 08:59 Last Admin: 01/03/24 08:41 Dose: 150 mg Hydroxyzine HCl (Hydroxyzine Hcl 25 Mg Tab) 50 mg PO HSZ PRN PRN Reason: Insomnia Stop: 01/30/24 20:15 Last Admin: 01/02/24 20:34 Dose: 50 mg Hydroxyzine HCl (Hydroxyzine Hcl 25 Mg Tab) 25 mg PO Q4H PRN PRN Reason: Anxiety Stop: 01/30/24 20:15 Magnesium Hydroxide (Magnesium Hydroxide Susp 30 Ml Udc) 30 ml PO DAILY PRN PRN Reason: Constipation Stop: 01/30/24 20:15 Sodium Chloride (Sodium Chloride 0.65% Na Soln 45 Ml ([place])) 1 - 2 sprays NA PRN PRN PRN Reason: Nasal Dryness/Congestion Stop: 01/30/24 20:15 Mental Health & Subst Abuse Tx Psychiatrist Name of Psychiatrist: Emanuel Psychiatrist's Psychiatric Appointment Comment: They will schedule an appointment after your therapy appointment Therapist Name of Therapist: Emanuel Meeks Therapist's Date of Therapist Appointment: 01/06/2024 Time of Therapist Appointment: 1800 Therapy Appointment Comment: [address], [address], [place] Please arrive 20 mins early Post Discharge Appointments Primary Care Physician Name Of Family Doctor/PCP: Jose Elias [facility] Specialist Name of Specialist: [facility] [employer] [facility] CM-Ana Montesinos (3) Intentional overdose of selective serotonin reuptake inhibitor (SSRI) Encounter type: initial encounter Qualified Code(s): T43.222A - Poisoning by selective serotonin reuptake inhibitors, intentional self-harm, initial encounter
--- NOTE | 2024-01-04 09:37 | Psychiatric Progress Note ---
Date of Service January 04, 2024 Impression / Recommendations Impression MASON CRENSHAW is a 18-year-old man and [employer] student with a history of unspecified depression, and was admitted on 12/31/23 19:52 on a 201 voluntary commitment for suicide attempt via overdose on 29 tabs of sertraline 50mg after requiring medical admission for suspected serotonin syndrome now stabilized for psychiatric inpatient treatment. Diagnostically consistent with major depressive disorder and generalized anxiety disorder and ADHD. Poor response to serotonergic agents in the past, Wellbutrin trial very appropriate given this especially given concern for possible ADHD contributing to burnout and driving factors to attempt. A: Ongoing improvement in his mood, he continues to deny SI and is reflecting on the various factors which lead to his attempt and ways to mitigate and modify these moving forward. No evidence of any increased anxiety with Wellbutrin. Discussed medication treatment options for suspected ADHD. Discussed risks, benefits and alternatives. Patient would like to start and consented to clonidine for ADHD. Reviewed side effects including but not limited to: low BP, syncope. He gave a limited SUHAS for me to speak with his father, he was not willing to allow me to alert his father to past suicide attempt or substance use. Overall, I spent a total of 55 minutes on this case including meeting with the patient, reviewing the chart, nursing report, multidisciplinary team meeting, orders, and documentation and speaking with his father on the phone. (1) Major depressive disorder, recurrent severe without psychotic features: (2) Generalized anxiety disorder: (3) Intentional overdose of selective serotonin reuptake inhibitor (SSRI): (4) ADHD: Plan 01/04/2024: -Start clonidine 0.1mg HS -Continue Wellbutrin XL 150mg daily 01/03/2024: Continue Wellbutrin XL 150mg daily -CAMS and ADHD self-report symptom checklist 01/02/24: Trial of Wellbutrin XL 150mg daily The patient was admitted to the [facility] ([facility] inpatient mental health unit) on q15 min checks (behavioral with suicide precautions) for safety. The patient will participate in group, recreational, and milieu therapies and will be offered additional individual and family sessions as clinically appropriate. Inventory Assets Strengths: supportive relationships, willing to get treatment Needs: safety and stabilization, medication adjustment, additional coping skills, increased outpatient services Suicide Risk Level Suicide Risk Level: Moderate (q15 min suicide checks) (denying current SI but s/p serious attempt, mood improving, feels safe in the hospital and feels able to ask for support) Risk Factors Assessment Male: Yes : Yes Do You Have Access To A Gun?: No Health Problems: No Mental Health Diagnoses: Yes Substance Use Disorders: Yes (intermittently uses substances) Previous Attempt: Yes Family History of Suicide: No Previous Psychiatric Hospitalization: No Hopelessness: No Protective Factors Assessment Baptism Beliefs: No : No Responsible for Young Children: No Employed: No Stable Relationships: Yes Supportive Family: Yes Good Rapport with Provider: Yes Absence of Any Risk Factors Above: Yes Interval History Identifying Information MASON CRENSHAW is a 18-year-old man and [employer] student with a history of unspecified depression, and was admitted on 12/31/23 19:52 on a 201 voluntary commitment for suicide attempt via overdose on 29 tabs of sertraline 50mg after requiring medical admission for suspected serotonin syndrome now stabilized for psychiatric inpatient treatment. Chief Complaint "This is a really low stress environment and I've re-evaluated what I care about". Review of Systems Sleep Information Total Hours of Sleep: 6 Sleep Comments: PRN Vistaril Meal Information Percent Meal Consumed - Breakfast: 100 Percent Meal Consumed - Lunch: 75 Percent Meal Consumed - Dinner: 100 Subjective Subjective Patient was seen & assessed and interval progress reviewed with treatment team nursing and social work. Slept for 6 hours. He reflects that he's caring about stressors to "less of an extreme" which is allowing him to feel less depressed and to not administrative law judge himself in such a negative way. He describes that "the whole reason for the attempt is that I like life but I didn't like living it as me". He expands that he has in the past imagined living as someone else in terms of wishing that he be more attractive or not having "bad hair genes" causing him to lose his hair. He feels that eating better in the hospital is also helping his mood. He feels that the groups and reflection and low stress of the hospital has helped him to realign his goals and think about what matters and what he cares about. Reviewed his ADHD self-report scale which was consistent with ADHD. He also provided history of recalling being "kicked out of preschool" due to struggling with hyperactivity and recalls being very hyperactive and losing things frequently as a child. He recalls that recommendations were made for trying medication for ADHD as a child but his parents were concerned about possible side effects. Also reviewed CAMS assessment-he rates his risk of suicide as 1/5 (extremely low risk) and reviewed some of his reasons for living including "there's a chance everything works". Discussed CBT and ways of challenging cognitive distortions especially ones related to physical appearance, comparing himself to others, and coping with mistakes or how to manage when he doesn't meet his high expectations for himself. Reviewed that he feels that adding structure and "consistency" to his daily routine will be one the most helpful interventions. He feels that having an additional medication to help with ADHD will also allow him to feel more organized and we discussed potential it may help with decreasing his impulsivity. So far he feels the Wellbutrin is helping his mood and inattention. He notes it took him some time to fall asleep but then once asleep he stayed asleep for most of the night, he recalls having a funny dream which he enjoyed. Physical Exam Psychiatric Orientation: alert and oriented x 3 Apperance: appropriately dressed and appropriately groomed Eye Contact: good eye contact Motor Behavior: steady gait and station and no abnormal motor movements Speech: normal rate/rhythm/volume of speech Affect: euthymic affect Mood: no depressed mood and no anxious mood Thought Process: goal directed thought process Thought Content: reality based without delusions Suicidal Thoughts: denies suicidal thoughts (but s/p serious attempt), denies suicidal plan and denies suicidal intent Homicidal Thoughts: denies homicidal thoughts Hallucinations: no auditory hallucinations, no visual hallucinations, no tactile hallucinations and no gustatory hallucinations Cognition: recent memory grossly intact, remote memory grossly intact, attention grossly intact and language grossly intact Estimated Intelligence: consistent with education level Insight: + fair insight Judgment: + fair judgement Vital Signs (Past 24 Hours) Last Vital Signs Temp 36.6 C 01/04/24 06:00 Pulse 74 01/04/24 06:37 Resp 16 01/04/24 06:00 BP 121/68 01/04/24 06:37 Pulse Ox 97 01/04/24 06:00 O2 Del Method Room Air 01/04/24 06:00 Results & Data ([facility]) Current Inpatient Medications Current Inpatient Medications: Current Inpatient Medications Acetaminophen (Acetaminophen 325 Mg Tab) 650 mg PO Q4H PRN PRN Reason: Headache or Minor Fever Stop: 01/30/24 20:15 Al Hydrox/Mg Hydrox/Simethicone (Aluminum/Magnesium Susp 30 Ml Udc) 30 ml PO Q4H PRN PRN Reason: GI Upset Stop: 01/30/24 20:15 Bismuth Subsalicylate (Bismuth Subsalicylate 262 Mg Chew) 2 tab PO Q30M PRN PRN Reason: Loose Stool/Diarrhea Stop: 01/30/24 20:15 Bupropion HCl (Bupropion Xl 150 Mg Tabcr) 150 mg PO QAM ELSY Stop: 02/02/24 08:59 Last Admin: 01/04/24 08:53 Dose: 150 mg Hydroxyzine HCl (Hydroxyzine Hcl 25 Mg Tab) 50 mg PO HSZ PRN PRN Reason: Insomnia Stop: 01/30/24 20:15 Last Admin: 01/02/24 20:34 Dose: 50 mg Hydroxyzine HCl (Hydroxyzine Hcl 25 Mg Tab) 25 mg PO Q4H PRN PRN Reason: Anxiety Stop: 01/30/24 20:15 Magnesium Hydroxide (Magnesium Hydroxide Susp 30 Ml Udc) 30 ml PO DAILY PRN PRN Reason: Constipation Stop: 01/30/24 20:15 Sodium Chloride (Sodium Chloride 0.65% Na Soln 45 Ml ([place])) 1 - 2 sprays NA PRN PRN PRN Reason: Nasal Dryness/Congestion Stop: 01/30/24 20:15 Mental Health & Subst Abuse Tx Psychiatrist Name of Psychiatrist: mEanuel Psychiatrist's Psychiatric Appointment Comment: They will schedule an appointment after your therapy appointment Therapist Name of Therapist: Emanuel Meeks Therapist's Date of Therapist Appointment: 01/06/2024 Time of Therapist Appointment: 1800 Therapy Appointment Comment: [address], [address], [place] Please arrive 20 mins early Post Discharge Appointments Primary Care Physician Name Of Family Doctor/PCP: Jose Elias [facility] Specialist Name of Specialist: [employer] [facility] [employer] [facility] JEFFREY-Ana Montesinos (3) Intentional overdose of selective serotonin reuptake inhibitor (SSRI) Encounter type: initial encounter Qualified Code(s): T43.222A - Poisoning by selective serotonin reuptake inhibitors, intentional self-harm, initial encounter
[2024-01-04] MEDS: cloNIDine HCL 0.1 MG TAB PO SCH (21:29)
--- NOTE | 2024-01-05 09:09 | Discharge Summary ---
Date of Service January 05, 2024 History of Present Illness MASON CRENSHAW is a 18-year-old M who currently lives in student housing with roommates, has a history of unspecified depression, and was admitted on 12/31/23 19:52 on a 201 voluntary commitment for SA via OD on 29 tabs of zoloft 50mg. Patient was observed in ED initially, however upon arrival to the floor was found to be delirious with suspicion of possible serotonin syndrome. Was transferred to medical floors for management and then returned to for psychiatric management once medically stabilized. Patient reports OD being impulsive in nature - was not planning it out in advance, rather was feeling increasingly more overwhelmed and that day happened to see the pills and impulsively took them (says had no thought about this). Quickly after doing so thought "Oh sh why did I do that?". Reached out to a friend and came to ED as he was scared that he might actually experience harm. He does also report 1 prior impulsive attempt last year (tried hanging self by fashioning rope out of clothes/sheets), however saw himself in the mirror and could not go through with it. He reports a long history of depression, first starting in middle school. Described as episodic in nature, though with usually specific triggers. Describes isolation, anhedonia, amotivation, low energy, negative ruminations, decreased appetite, disrupted sleep and times of SI as above. Can last weeks or more. Also long history of anxiety - generalized in nature, ruminations, overthinking, excessive worry, feeling overwhelmed by stressors. Anxiety persists even when not depressed. Of note patient also describes symptoms that sound like possible ADHD, desc ribes the following since childhood: restlessness, difficulty sitting still, impulsivity, emotional reactivity, inattention, procrastination, difficulty maintaining focus, often interrupting, talking excessively, forgetfulness, often losing belongings. Describes these symptoms as significantly impacting his daily life - although does well in school, finds self struggling to get work done unless it's the night before, which results in significant anxiety and stress. DIfficult to gauge however if truly ADHD or PRASANNA/depression interfering with executive function. Patients social history is significant in regard to affecting his mood symptoms. Describes relationship with parents as discordant and distant. Father is malay, immigrated from [place], described by patient as highly critical. Also describes lack of emotional support while growing up and now - remembers being in middle school and crying in class, when mom picked him up remembers her saying "don't do that again in public" but never inquiring about why he cried. Reports experiencing significant emotional abuse while growing up. Says that he has always felt a pressure to be less emotional and be "successful", describes significant portion of his anxiety as relating to this. He does have a large and supportive friend group with whom he shares and goes to for support. He acknowledges the need for therapy to help him work through the above. Of note, about a month ago was started on fluoxetine by pcp - took for about 3 weeks and describes feeling acutely worse from it. Was switched to zoloft 50mg, took for 1 day and then overdosed. Patient believes that this response to fluoxetine contributed to overdose as prior to starting it and worsening, he had been gradually feeling less depressed. Physical Exam Vital Signs (Past 24 Hours) Last Vital Signs Temp 36.4 C 01/05/24 06:42 Pulse 73 01/05/24 06:42 Resp 16 01/05/24 06:42 BP 107/63 01/05/24 06:43 Pulse Ox 98 01/05/24 06:42 O2 Del Method Room Air 01/05/24 06:42 Principal Diagnosis Major Depressive Disorder Psychiatric Data See daily stay summary. In short, patient was engaged with the social/therapeutic milieu of the unit, safety was maintained and the patient was cooperative with care. Medication changes included discontinuation of sertraline, initiation of Wellbutrin XL 150mg daily for MDD and additional off- label use for ADHD and clonidine 0.1mg HS for ADHD and they tolerated this well. A support session was held and safety plan was completed prior to discharge. They participated in safety planning and in discussions about ways to seek support and recognizing warning signs and utilizing coping skills. Reviewed ways to have their safety plan and contacts easily available should thoughts of SI re-emerge in the future. Reviewed importance of seeking emergency care should SI intensify, worsen or should they feel unsafe in the future which they agree to do. On the day of discharge they stated their mood was "good" and "relaxed" and remained future-oriented including spending time outside, seeing friends, spending time with his dad, getting back to classes and engaging in aftercare appointments for psychiatry, therapy and [employer] student care and advocacy. [facility] if individual therapy isn't providing enough support or if symptoms of depression worsen again in the future. Day of Discharge Assessment Today the patient voices readiness for discharge. They note improvement in mood and anxiety. They deny thoughts of harm to self or others. Thoughts are organized and they are clinically improved from admission. There is no evidence of psychosis. They improved in the hospital with support and medication adjustments. They agree to take medications as prescribed and keep follow-up appointments. At the time of the discharge they are deemed to be stable and appropriate for outpatient level of care. They are not deemed to be at imminent risk of harm to self or others. They are aware of emergency and crisis services. Knows to call 911 or go to nearest emergency care center if in a crisis which cannot be handled as an outpatient. Suicide risk assessment: Acute risk is low given improvement in mood and denial of SI, lack of access to lethal means, improvement in sleep, hopefulness. Chronic risk is moderate to high given some non-modifiable risk factors: psychiatric co-morbid diagnoses, periods of impulsivity, prior attempt, but also with protective factors including: student, good social support, sense of responsibility to family and social supports, outpatient care in place, positive coping skills, positive problem solving, willingness to engage with treatment and self-observation. Counseled on ways to reduce acute and chronic risk including engaging with outpatient providers, using safety plan if needed, utilizing supports, taking medication, and using coping skills. Modifiable risk factors of SI and depression were addressed during hospitalization through development of new coping skills, support meeting, safety planning, and medication adjustments. Discharge physical exam: See admission H&P, MSE per above and day of discharge summary. Overall, I spent a total of 35 minutes on this case including meeting with the patient, reviewing the chart, nursing report, multidisciplinary team meeting, discharge orders, anticipatory planning, safety planning, risk assessment and documentation. Transition of Care Transition Of Care Record: was reviewed with the patient Advance Directives Advance Directives Information Provided: Yes Advance Directives: No Mental Health Advance Directive: No Advance Directives on File: No Living Will: No Power of College Recruiter: No Advance Directives Reason:: Declines as Mental Health Visit. Suicide Risk Level Suicide Risk Level Comments: Acute risk is low, see assessment above Risk Factors Assessment Male: Yes : Yes Do You Have Access To A Gun?: No Health Problems: No Mental Health Diagnoses: Yes Substance Use Disorders: No Previous Attempt: Yes Family History of Suicide: No Previous Psychiatric Hospitalization: No Hopelessness: No Protective Factors Assessment : No Responsible for Young Children: No Employed: Yes (student and tutors) Stable Relationships: Yes Supportive Family: Yes Good Rapport with Provider: Yes Absence of Any Risk Factors Above: Yes Hospital Course (1) Major depressive disorder, recurrent severe without psychotic features: (2) Generalized anxiety disorder: (3) Intentional overdose of selective serotonin reuptake inhibitor (SSRI): (4) ADHD: Plan 01/04/2024: -Start clonidine 0.1mg HS -Continue Wellbutrin XL 150mg daily 01/03/2024: Continue Wellbutrin XL 150mg daily -CAMS and ADHD self-report symptom checklist 01/02/24: Trial of Wellbutrin XL 150mg daily The patient was admitted to the [facility] ([facility] unit) on q15 min checks (behavioral with suicide precautions) for safety. The patient will participate in group, recreational, and milieu therapies and will be offered additional individual and family sessions as clinically appropriate. Mental Health & Subst Abuse Tx Psychiatrist Name of Psychiatrist: Emanuel Psychiatrist's Psychiatric Appointment Comment: They will schedule an appointment after your therapy appointment Therapist Name of Therapist: Emanuel Meeks Therapist's Date of Therapist Appointment: 01/06/2024 Time of Therapist Appointment: 1800 Therapy Appointment Comment: [address], [address], [place] JOHN velazco arrive 20 mins early Post Discharge Appointments Primary Care Physician Name Of Family Doctor/PCP: Jose Elias [facility] Specialist Name of Specialist: Student Care & Advocacy JEFFREY-Ana Montesinos Discharge Plan Discharge Items Patient Disposition: Home - Self-Care Reason For Visit: DEPRESSIVE DISORDER Discharge Diagnosis: Major Depressive Disorder Activity: Resume your previous activity Non-emergency contact: Primary Care Provider, Psychiatrist and Therapist Call non-emergency contact if: you have any medication questions and your symptoms worsen Follow-up/Referrals: Jose Elias Mosher CRNP [Primary Care Provider] - Diet: Regular Addtl Attending Provider Instructions: Optional mobile apps: -Suicide safety plan -Virtual Hope Box -Headspace $ SPECIAL CARE INSTRUCTIONS: 1. Follow through with your scheduled aftercare appointments. If unable to keep an appointment, please call to reschedule. 2. Take your medication only as prescribed. Medication should not be changed or stopped without the approval of your doctor. In the event of worsening symptoms or concerns about side effects, contact your doctor immediately. 3. Utilize new healthy coping skills, anger management skills, and stress management skills learned during your hospitalization. Journal feelings and process them with a support person. Identify stressors or situations that may result in relapse, deterioration or inappropriate behaviors and develop a plan to deal with those issues. 4. If your coping skills are ineffective and you are in crisis, contact your outpatient providers for direction. If unable to reach your providers, please call the [facility] CRISIS LINE AT , go to the [facility] walk-in center at [address] [facility], or go to the closest Emergency Room. 5. Avoid alcohol and un-prescribed drugs. 6. You have been provided with the Mental Health Advance Directives Pamphlet for your review. 7. Your condition is stable for discharge to outpatient level of care, but recovery is an ongoing process. Ifthoughts to harm yourself or others return, follow the safety plan developed during your stay. Planning for a safe return home includes securing weapons. Our treatment team recommends weaponsbe removed from the home until your outpatient provider reassesses your progress. In rare cases where the items themselvescannot be removed, guns and ammunitionshould be secured separatelyand keys stored by a reliable personoutside of the home. If you were admitted on an involuntary commitment, the police or other legal authorities may be involved in this process. AFTERCARE APPOINTMENTS: * Please call your insurance company prior to your scheduled appointment to confirm your aftercare providers are covered. Take your insurance information to your appointments. WHO TO CALL AND WHEN: Medical Emergencies: For questions or emergencies related to your hospital stay, please contact the Inpatient Behavioral Health Unit at [phone]. A steno pool supervisor is on-call 14/10 for the Behavioral Health Unit for emergencies At any time you feel your situation is an emergency, you may also call 911 immediately. National Crisis Hotline: 98 Pending Studies at Discharge: No Stand-Alone Forms: My [facility] Medications and DC Order Prescriptions: New clonidine HCl 0.1 mg Tablet 0.1 mg PO HS 15 Days Qty: 15 1RF bupropion HCl 150 mg Tablet Extended Release 24 Hr 150 mg PO QAM 15 Days Qty: 15 1RF Discontinued sertraline [Zoloft] 50 mg Tablet 50 mg PO DAILY Discharge Orders: Discharge Order (Routine); Ordered 01/05/24 Ordered By: Vanessa Warner Admission Data Admit Date/Time: 12/31/23 19:52 Attending Provider: Vanessa Warner Admit Provider: Susnhine Hernandez Primary Care Provider: Jose Elias Mosher Coding Level of Care Code 98299 D/C day mgmt > 30 min Diagnoses Major depressive disorder, recurrent severe without psychotic features F33.2 Generalized anxiety disorder F41.1 Intentional overdose of selective serotonin reuptake inhibitor (SSRI) T43.222A Encounter type: initial encounter ADHD F90.9
== END 2024-01-05 13:30 | disposition home or self-care (01) | DRG 885 ==
LOC: SUATTDRO 19:52 → 3S 19:52